=== PATIENT | male | born 1970 | race Caucasian/White ===

== ENCOUNTER 2016-12-30 13:59 | Emergency (ER) | payer BC ==
[2016-12-30] MEDS ORDERED: LORAZEPAM 1 MG TABLET PO ONE (14:41)
--- NOTE | 2016-12-30 14:45 | ER Document Report ---
ED Medical Screen (RME) - General Chief Complaint: Probable Seizure Stated Complaint: POSSIBLE SEIZURE Mode of Arrival: Medic Information source: Patient Notes: 46 y/o M presents to ED via ems for seizure activity. Denies hx of seizures. Admits to heavy etoh use. States usually drinks 8 mixed drinks/day. Had one this morning. Reports associated headache. I have greeted and performed a rapid initial assessment of this patient. A comprehensive ED assessment and evaluation of the patient, analysis of test results and completion of the medical decision making process will be conducted by additional ED providers. TRAVEL OUTSIDE OF THE [place] IN LAST 30 DAYS: No COUNTRY TRAVELED TO/FROM: [facility] - Related Data Allergies/Adverse Reactions: sulfamethoxazole [From Bactrim] Allergy (Verified 12/30/16 14:32) trimethoprim [From Bactrim] Allergy (Verified 12/30/16 14:32) Past Medical History - Social History Chew tobacco use (# tins/day): No Frequency of alcohol use: daily Drug Abuse: None Renal/ Medical History: Denies: Hx Peritoneal Dialysis Physical Exam - Vital signs Vitals: Temp Pulse Resp BP Pulse Ox 98.5 F 98 20 149/96 H 97 12/30/16 14:28 12/30/16 14:28 12/30/16 14:28 12/30/16 14:28 12/30/16 14:28 - General General appearance: Alert In distress: None - Neurological Neuro grossly intact: Yes Cognition: Normal Orientation: AAOx4 [place] Coma Scale Eye Opening: Spontaneous [place] Coma Scale Verbal: Oriented [place] Coma Scale Motor: Obeys Commands [place] Coma Scale Total: 15 Speech: Normal Motor strength normal: LUE, RUE, LLE, RLE - Psychological Associated symptoms: Anxious Course - Vital Signs Vital signs: Temp Pulse Resp BP Pulse Ox 98.5 F 98 20 149/96 H 97 12/30/16 14:28 12/30/16 14:28 12/30/16 14:28 12/30/16 14:28 12/30/16 14:28
[2016-12-30 15:07] LABS: ABSOLUTE BASOPHILS # (AUTO) 0.1 10^3/uL (0.0-0.2); ABSOLUTE LYMPHOCYTES (AUTO) 0.7 10^3/uL (0.5-4.7); ABSOLUTE MONOCYTES (AUTO) 0.7 10^3/uL (0.1-1.4); ABSOLUTE NEUT (AUTO) 3.7 10^3/uL (1.7-8.2); BASOPHILS % (AUTO) 2.5 % (0-2); EOSINOPHILS % (AUTO) 0.1 % (0-6); HEMATOCRIT 40.9 % (37.9-51.0); HEMOGLOBIN 14.1 g/dL (13.5-17.0); HGB HCT DIFFERENCE 1.4; LYMPHOCYTES % (AUTO) 13.6 % (13-45); MEAN CORPUSCULAR HEMOGLOBIN 35.4 pg (27.0-33.4); MEAN CORPUSCULAR HGB CONC 34.5 g/dL (32.0-36.0); MEAN CORPUSCULAR VOLUME 103 fl (80-97); MONOCYTES % (AUTO) 13.7 % (3-13); RED BLOOD COUNT 3.98 10^6/uL (4.35-5.55); RED CELL DISTRIBUTION WIDTH 14.7 % (11.5-14.0); SEGMENTED NEUTROPHILS % (AUTO) 70.1 % (42-78); WHITE BLOOD COUNT 5.3 10^3/uL (4.0-10.5)
[2016-12-30 15:21] LABS: ALANINE AMINOTRANSFERASE 95 U/L (21-72); ALBUMIN 4.8 g/dL (3.5-5.0); ALKALINE PHOSPHATASE 111 U/L (38-126); ANION GAP 10 (5-19); ASPARTATE AMINO TRANSFERASE 169 U/L (17-59); BILIRUBIN,TOTAL 1.2 mg/dL (0.2-1.3); BLOOD UREA NITROGEN 10 mg/dL (7-20); CALCIUM 9.8 mg/dL (8.4-10.2); CARBON DIOXIDE 27 mmol/L (22-30); CHLORIDE 102 mmol/L (98-107); CREATININE RESULT 0.86 mg/dL (0.52-1.25); GLUCOSE 118 mg/dL (75-110); MAGNESIUM 1.6 mg/dL (1.6-2.3); POTASSIUM 4.5 mmol/L (3.6-5.0); SODIUM 138.7 mmol/L (137-145); TOTAL PROTEIN 7.5 g/dL (6.3-8.2)
[2016-12-30 15:22] LABS: ALCOHOL < 10 mg/dL (NONE DETECTED)
[2016-12-30 16:25] LABS: APPEARANCE,URINE CLEAR; BILIRUBIN,URINE NEGATIVE (NEGATIVE); GLUCOSE, URINE NEGATIVE (NEGATIVE); KETONES,URINE 80 mg/dL (NEGATIVE); LEUKOCYTE ESTERASE,URINE NEGATIVE (NEGATIVE); NITRITE,URINE NEGATIVE (NEGATIVE); PROTEIN,URINE 100 mg/dL (NEGATIVE); URINE SPECIFIC GRAVITY 1.024
--- NOTE | 2016-12-30 16:37 | EKG REPORT ---
SEVERITY:- ABNORMAL ECG - SINUS RHYTHM LOW VOLTAGE IN FRONTAL LEADS NONSPECIFIC T ABNORMALITIES, INFERIOR LEADS : Confirmed by: Mariia Singletary MD 30-Dec-2016 16:35:30
[2016-12-30 16:40] LABS: URINE BARBITURATES SCREEN NEGATIVE; URINE METHADONE SCREEN NEGATIVE; URINE OPIATES LOW NEGATIVE; URINE PHENCYCLIDINE SCREEN NEGATIVE
[2016-12-30] MEDS ORDERED: FOLIC ACID INJ 5 MG/1 ML 10 ML VIAL IV PRN (17:01)
[2016-12-30] MEDS ORDERED: LORAZEPAM INJ 2 MG/1 ML VIAL IV ONE ×2 (17:01→18:41)
[2016-12-30] MEDS ORDERED: THIAMINE HCL 100 MG in NORMAL SALINE 50 ML IV ONE (17:01)
[2016-12-30 17:29] LABS: MAGNESIUM 1.6 mg/dL (1.6-2.3)
[2016-12-30] MEDS: NORMAL SALINE 1000 ML 1,000 ML IV PRN ×2 (18:16→18:28)
[2016-12-30] MEDS ORDERED: THIAMINE HCL 100 MG, FOLIC ACID 1 MG in NORMAL SALINE 50 ML IV ONE (18:30)
--- NOTE | 2016-12-30 19:54 | ER Document Report ---
ED General - General Chief Complaint: Probable Seizure Stated Complaint: POSSIBLE SEIZURE Time seen by provider: 17:00 Mode of Arrival: Medic Information source: Patient, Relative Notes: This is a 46-year-old man who is brought in by EMS after a generalized witnessed seizure at home in the setting of stopping alcohol intake. The patient does have a history of alcohol abuse. He states he took half a drink this morning (he was can stop). Later in the day, his friend noticed that he had a generalized tonic-clonic seizure. The patient is followed by Dr. Guaman and has a history of hypertension, depression and anxiety. His medicines are metoprolol, Prozac and Xanax. Patient states he did not take any Xanax today. TRAVEL OUTSIDE OF THE [place] IN LAST 30 DAYS: No COUNTRY TRAVELED TO/FROM: [facility] Onset: Just prior to arrival Onset/Duration: Sudden Quality of pain: No pain Severity: None Pain Level: Denies Associated symptoms: denies: Chills, Fever, Shortness of breath Exacerbated by: Denies Relieved by: Denies Similar symptoms previously: No Recently seen / treated by doctor: No - Related Data Allergies/Adverse Reactions: sulfamethoxazole [From Bactrim] Allergy (Verified 12/30/16 14:32) trimethoprim [From Bactrim] Allergy (Verified 12/30/16 14:32) Past Medical History - General Information source: Patient - Social History Smoking Status: Current Every Day Smoker Cigarette use (# per day): Yes - 1 pack per day Chew tobacco use (# tins/day): No Smoking Education Provided: No Frequency of alcohol use: Heavy Drug Abuse: None Lives with: Family Family History: Reviewed & Not Pertinent Patient has suicidal ideation: No Patient has homicidal ideation: No - Past Medical History Cardiac Medical History: Reports: Hx Hypertension Renal/ Medical History: Denies: Hx Peritoneal Dialysis Psychiatric Medical History: Reports: Hx Depression Review of Systems - Review of Systems Constitutional: denies: Chills, Fever EENT: No symptoms reported Cardiovascular: No symptoms reported Respiratory: No symptoms reported Gastrointestinal: No symptoms reported Genitourinary: No symptoms reported Male Genitourinary: No symptoms reported Musculoskeletal: No symptoms reported Skin: No symptoms reported Hematologic/Lymphatic: No symptoms reported Neurological/Psychological: See HPI Physical Exam - Vital signs Vitals: Temp Pulse Resp BP Pulse Ox 98.5 F 98 20 149/96 H 97 12/30/16 14:28 12/30/16 14:28 12/30/16 14:28 12/30/16 14:28 12/30/16 14:28 Notes: Physical exam: GENERAL: 46-year-old man, alert and oriented 3, appears tremulous HEAD: Atraumatic, normocephalic. EYES: Pupils equal round and reactive to light, extraocular movements intact, sclera anicteric, conjunctiva are normal. ENT: TMs normal, nares patent, oropharynx clear without exudates. Moist mucous membranes. NECK: Normal range of motion, supple without lymphadenopathy or JVD. LUNGS: Breath sounds clear to auscultation bilaterally and equal. No wheezes rales or rhonchi. HEART: Regular rate and rhythm without murmurs, rubs or gallops. ABDOMEN: Soft, normoactive bowel sounds. No tenderness to palpation. No guarding, no rebound. No masses appreciated. EXTREMITIES: Normal range of motion, no pitting or edema. No clubbing or cyanosis. NEUROLOGICAL: Cranial nerves II through XII grossly intact. Motor 5 over 5, sensory grossly intact, moving all extremities, he does appear tremulous. PSYCH: Normal mood, normal affect. SKIN: Warm, Dry, normal turgor, no rashes or lesions noted. Course - Re-evaluation Re-evalutation: 12/30/16 19:49 Patient was observed several hours in the ER. He was treated with IV Ativan, IV folic acid and IV thiamine. I discussed the case with Dr. Guaman in the emergency room who had seen him in the ER. The plan will be for follow-up as an outpatient, home with by mouth Ativan of encourage patient to go to [facility] Dr. Guaman would like to see him in the beginning of next week. - Vital Signs Vital signs: Temp Pulse Resp BP Pulse Ox 98.3 F 88 18 130/81 H 97 12/30/16 20:25 12/30/16 20:25 12/30/16 20:25 12/30/16 20:25 12/30/16 20:25 - Laboratory Result Diagrams: 12/30/16 14:45 12/30/16 14:45 Laboratory results interpreted by me: 12/30/16 12/30/16 12/30/16 14:45 14:45 14:45 RBC 3.98 L MCV 103 H MCH 35.4 H RDW 14.7 H Plt Count 126 L Monocytes % 13.7 H Basophils % 2.5 H Glucose 118 H AST 169 H ALT 95 H Creatine Kinase 177 H Urine Protein Urine Ketones Urine Urobilinogen 12/30/16 16:04 RBC MCV MCH RDW Plt Count Monocytes % Basophils % Glucose AST ALT Creatine Kinase Urine Protein 100 H Urine Ketones 80 H Urine Urobilinogen 4.0 H - Diagnostic Test Radiology reviewed: Image reviewed, Reports reviewed - CT of the head shows no acute bleed or stroke. Chest x-ray shows no infiltrates. - EKG Interpretation by Me Rate: Normal Rhythm: NSR - EKG shows normal sinus rhythm with a ventricular rate of 93, no acute ST-T wave changes Discharge - Discharge Clinical Impression: alcohol withdrawal seizure Condition: Stable Disposition: HOME, SELF-CARE Additional Instructions: Recommendations: Take the Ativan 3 times daily to avoid SEIZURES. I would like you to follow-up with [facility] which is right on the hospital premises ( [address]): Call them for detox. The number is Dr. Guaman would also like to see Tuesday or Tuesday: Call the clinic to be seen on Tuesday, tell the switchboard receptionist that Dr. Guaman had seen you in the emergency room night. Return to the emergency room for any further seizures or worsening problems. Prescriptions: Folic Acid 1 mg PO DAILY #30 tablet Lorazepam [Ativan 1 mg Tablet] 1 tab PO TID #30 tablet Thiamine HCl [Thiamine 100 mg Tablet] 100 mg PO DAILY #30 tablet Referrals: ANSELMO GUAMAN MD [Primary Care Provider] - 01/03/17
[2016-12-30 20:34] VITALS: BP 130/81
== END 2016-12-30 20:27 | disposition home or self-care (01) ==
LOC: ER 13:59
DX: F10.239 Alcohol dependence with withdrawal, unspecified (principal); R56.9 Unspecified convulsions; F17.210 Nicotine dependence, cigarettes, uncomplicated; I10 Essential (primary) hypertension
CPT/HCPCS: 93005; 96376; 99285; 96361; 96375; 96365; 36415; 80307 ×2; 82550; 83735; 85025; 80053; 81001; 71010; 70450; 93010; J3490; J2060; J3411; J7030

== ENCOUNTER 2017-05-03 00:01 | Inpatient (IN) | payer SELFPAY ==
[2017-05-03] MEDS ORDERED: DIAZEPAM INJ 10 MG/2 ML DISP.SYRIN ONE ×2 (01:41→05:50)
[2017-05-03] MEDS ORDERED: LORAZEPAM INJ 2 MG/1 ML VIAL ONE ×2 (01:48→05:56)
[2017-05-03] MEDS ORDERED: LORAZEPAM INJ 2 MG/1 ML VIAL IV ONE ×2 (01:51→06:02)
[2017-05-03] MEDS ORDERED: DIAZEPAM INJ 10 MG/2 ML DISP.SYRIN IV ONE ×2 (01:51→04:25)
[2017-05-03] MEDS ORDERED: THIAMINE HCL 100 MG in NORMAL SALINE 50 ML IV ONE (01:52)
[2017-05-03] MEDS ORDERED: THIAMINE HCL INJ 200 MG/2 ML VIAL ONE (02:19)
[2017-05-03 03:06] LABS: ALANINE AMINOTRANSFERASE 90 U/L (21-72); ALBUMIN 4.4 g/dL (3.5-5.0); ALKALINE PHOSPHATASE 101 U/L (38-126); ANION GAP 15 (5-19); ASPARTATE AMINO TRANSFERASE 121 U/L (17-59); BILIRUBIN,DIRECT 0.4 mg/dL (0.0-0.4); BILIRUBIN,TOTAL 0.9 mg/dL (0.2-1.3); BLOOD UREA NITROGEN 7 mg/dL (7-20); CALCIUM 9.7 mg/dL (8.4-10.2); CARBON DIOXIDE 23 mmol/L (22-30); CHLORIDE 101 mmol/L (98-107); CREATININE RESULT 0.83 mg/dL (0.52-1.25); GLUCOSE 111 mg/dL (75-110); MAGNESIUM 1.7 mg/dL (1.6-2.3); POTASSIUM 3.9 mmol/L (3.6-5.0); SODIUM 138.5 mmol/L (137-145); TOTAL PROTEIN 7.6 g/dL (6.3-8.2)
[2017-05-03 03:08] LABS: ALCOHOL < 10 mg/dL (NONE DETECTED)
[2017-05-03 03:11] LABS: ABSOLUTE BASOPHILS # (AUTO) 0.1 10^3/uL (0.0-0.2); ABSOLUTE LYMPHOCYTES (AUTO) 0.6 10^3/uL (0.5-4.7); ABSOLUTE MONOCYTES (AUTO) 0.7 10^3/uL (0.1-1.4); ABSOLUTE NEUT (AUTO) 5.1 10^3/uL (1.7-8.2); BASOPHILS % (AUTO) 1.1 % (0-2); EOSINOPHILS % (AUTO) 0.1 % (0-6); HEMATOCRIT 43.1 % (37.9-51.0); HEMOGLOBIN 14.3 g/dL (13.5-17.0); HGB HCT DIFFERENCE -0.2; MEAN CORPUSCULAR HEMOGLOBIN 34.5 pg (27.0-33.4); MEAN CORPUSCULAR HGB CONC 33.3 g/dL (32.0-36.0); MEAN CORPUSCULAR VOLUME 104 fl (80-97); MONOCYTES % (AUTO) 11.6 % (3-13); RED BLOOD COUNT 4.16 10^6/uL (4.35-5.55); RED CELL DISTRIBUTION WIDTH 13.6 % (11.5-14.0); SEGMENTED NEUTROPHILS % (AUTO) 78.2 % (42-78); WHITE BLOOD COUNT 6.5 10^3/uL (4.0-10.5)
--- NOTE | 2017-05-03 03:16 | RADIOLOGY REPORT (SQ) ---
EXAM DESCRIPTION: CT HEAD WITHOUT COMPLETED DATE/TIME: 05/03/2017 3:05 am REASON FOR STUDY: fall COMPARISON: 12.30.16 TECHNIQUE: Axial images acquired through the brain without intravenous contrast. Images reviewed wi th bone, brain and subdural windows. Images stored on PACS. All CT scanners at this facility use dose modulation, iterative reconstruction, and/or weight based d osing when appropriate to reduce radiation dose to as low as reasonably achievable (ALARA). [facility]: Dose Right [facility]: CareDose [facility]: Dose Right [facility]: Teradose 4D [facility]: Smart Zazoom RADIATION DOSE: Up-to-date CT equipment and radiation dose reduction techniques were employed. CTDIv ol: 64.6 mGy. DLP: 1138 mGy-cm. mGy. LIMITATIONS: None. FINDINGS: VENTRICLES: Normal size and contour. CEREBRUM: No masses. No hemorrhage. No midline shift. Normal castaneda/white matter differentiation. N o evidence for acute infarction. Mild cerebral volume loss. CEREBELLUM: No masses. No hemorrhage. No alteration of density. No evidence for acute infarction. EXTRAAXIAL SPACES: No fluid collections. No masses. ORBITS AND GLOBE: No intra- or extraconal masses. Normal contour of globe without masses. CALVARIUM: No fracture. PARANASAL SINUSES: No fluid or mucosal thickening. SOFT TISSUES: No mass or hematoma. OTHER: No other significant finding. IMPRESSION: NORMAL BRAIN CT WITHOUT CONTRAST. TECHNICAL DOCUMENTATION: JOB ID: [id number] Quality ID # [id number]: Final reports with documentation of one or more dose reduction techniques (e.g., Au tomated exposure control, adjustment of the mA and/or kV according to patient size, use of iterative reconstruction technique) 2010 [employer]- All Rights Reserved
--- NOTE | 2017-05-03 04:30 | ER Document Report ---
ED General - General Chief Complaint: Alcohol Withdrawl Stated Complaint: POSSIBLE ETOH Time Seen by Provider: 05/03/17 01:51 Notes: Patient presents to the ER having seizures. He has a history of alcohol withdrawal causing seizures in the past. He is on no medications. He does not have a doctor at this time. He does not have insurance and therefore no longer sees a doctor according to family. He was trying to cut back on alcohol today. He typically drinks half a gallon of vodka a day. Today he had about 2 beers trying to cut back. Tonight he started having a seizure. Upon arrival to the ER he is having a seizure. When I enter the room he just finished having a seizure and did bite his tongue. He is somewhat combative and confused. TRAVEL OUTSIDE OF THE [place] IN LAST 30 DAYS: No COUNTRY TRAVELED TO/FROM: [facility] - Related Data Allergies/Adverse Reactions: sulfamethoxazole [From Bactrim] Allergy (Verified 05/03/17 00:11) trimethoprim [From Bactrim] Allergy (Verified 05/03/17 00:11) codeine Adverse Reaction (Verified 05/03/17 00:11) VOMITING, welts Past Medical History - Social History Smoking Status: Unknown if Ever Smoked Frequency of alcohol use: Heavy Drug Abuse: None Family History: Reviewed & Not Pertinent - Past Medical History Cardiac Medical History: Reports: Hx Hypertension Renal/ Medical History: Denies: Hx Peritoneal Dialysis Psychiatric Medical History: Reports: Hx Depression Review of Systems - Review of Systems Notes: My Normal Review Basic REVIEW OF SYSTEMS: CONSTITUTIONAL : Denies fever, chills, or sweats. Denies recent illness. EENT: Denies eye, ear, throat, or mouth pain or symptoms. Denies nasal or sinus congestion. RESPIRATORY: Denies cough, cold, or chest congestion. Denies shortness of breath, difficulty breathing, or wheezing. GASTROINTESTINAL: Denies abdominal pain. Denies nausea, vomiting, or diarrhea. Denies constipation. Last BM: MUSCULOSKELETAL: Denies neck or back pain or joint pain or swelling. SKIN: Denies rash or skin lesions. NEUROLOGICAL: Alcohol withdrawal with seizure. ALL OTHER SYSTEMS REVIEWED AND NEGATIVE. Physical Exam - Vital signs Vitals: Temp Pulse Resp BP Pulse Ox 98.5 F 95 19 125/100 H 97 05/03/17 00:13 05/03/17 00:13 05/03/17 00:13 05/03/17 00:13 05/03/17 00:13 - Notes Notes: General Appearance: Patient is postictal and easily agitated and somewhat combative. Vitals: reviewed, See vital signs table. Head: no swelling or tenderness to the head Eyes: PERRL, EOMI, Conjuctiva clear Mouth: Abrasion to the right lateral aspect of the tongue from where he bit his tongue. Throat: No tonsillar inflammation, No airway obstruction, No lymphadenopathy Lungs: No wheezing, No rales, No rhonci, No accessory muscle use, good air exchange bilaterally. Heart: Normal rate, Regular rythm, No murmur, no rub Abdomen: Normal BS, soft, No rigidity, No abdominal tenderness, No guarding, no rebound, no abdominal masses, no organomegaly Extremities: strength 5/5 in all extremities, good pulses in all extremities, no swelling or tenderness in the extremities, no edema. Skin: warm, dry, appropriate color, no rash Neuro: speech clear, oriented x 3, normal affect, responds appropriately to questions. Course - Vital Signs Vital signs: Temp Pulse Resp BP Pulse Ox 98.5 F 95 28 H 125/100 H 88 L 05/03/17 00:13 05/03/17 00:13 05/03/17 06:00 05/03/17 00:13 05/03/17 06:00 - Laboratory Result Diagrams: 05/03/17 02:35 05/03/17 02:35 Laboratory results interpreted by me: 05/03/17 05/03/17 02:35 02:35 RBC 4.16 L MCV 104 H MCH 34.5 H Plt Count 101 L Seg Neutrophils % 78.2 H Lymphocytes % 9.0 L Glucose 111 H AST 121 H ALT 90 H - Transfer of Care Notes: 05/03/17 06:43 Arrived in the room patient was obviously confused. He then became combative and was trying to push us off. Would not allow us to give him medications try to help prevent further seizures. We did have to hold him down place an IV. He was given 5 of Valium. He continued to have tremor and therefore gave him 4 of Ativan. This did help sedate him and he was doing much better. Patient later awoke and was awake and alert and more appropriate. He started to have a tremor grandmother for ordered 5 mg of Valium IV. Patient laboratory evaluation is unremarkable. I did speak with the hospitalist who agrees to admit the patient. Patient did have a CT scan of his head because the family member so that he has been falling a lot frequently due to his alcohol abuse. CT scan was negative. Patient will be admitted for further treatment of his alcohol withdrawal and seizures. Dictation of this chart was performed using voice recognition software; therefore, there may be some unintended grammatical errors. Discharge - Discharge Clinical Impression: Seizure Alcohol dependence with withdrawal Qualifiers: Complication of substance-induced condition: with delirium Qualified Code(s): F10.231 - Alcohol dependence with withdrawal delirium Disposition: ADMITTED INPATIENT Admitting Provider: Hospitalist Unit Admitted: Telemetry
[2017-05-03] MEDS ORDERED: ACETAMINOPHEN 325 MG TABLET PO PRN (04:31)
[2017-05-03] MEDS ORDERED: LORAZEPAM INJ 2 MG/1 ML VIAL IV PRN (04:31)
[2017-05-03] MEDS ORDERED: FOLIC ACID INJ 5 MG/1 ML 10 ML VIAL IV PRN (05:30)
[2017-05-03] MEDS ORDERED: THIAMINE HCL 100 MG, FOLIC ACID 1 MG in NORMAL SALINE 50 ML IV ONE (05:30)
[2017-05-03] MEDS ORDERED: THIAMINE HCL INJ 200 MG/2 ML VIAL IV PRN (05:30)
[2017-05-03] MEDS: NORMAL SALINE 1000 ML 1,000 ML IV SCH ×2 (06:19→10:46)
[2017-05-03] MEDS: LORAZEPAM INJ 2 MG/1 ML VIAL IV SCH ×3 (06:20→18:05)
--- NOTE | 2017-05-03 06:31 | PDOC H&P ---
History of Present Illness Admission Date/PCP: 05/03/17 04:31 Patient complains of: Seizure History of Present Illness: LUPE JACKSON is a 46 year old male with a past history of tobacco and alcohol dependence who has been in his usual state of health until approximately 6 hours prior to presentation having a witnessed seizure, he was helped to the ground placed in the recumbent position but sustained laceration to the tongue. He had a brief postictal state but returned to baseline he was brought to the emergency room for evaluation and had another 2 episodes followed by severe agitation. He is accompanied by his who can only provide limited additional history verifying problem drinking and previous seizure. Over the past 6 hours she is required 20 mg of Valium and 12 mg of Ativan IV but remains awake and alert. Past Medical History Cardiac Medical History: Reports: Hypertension Psychiatric Medical History: Reports: Alcohol Dependency, Depression, Tobacco Dependency Social History Information Source: Relative, [facility] Lives with: Spouse/Significant other Smoking Status: Current Every Day Smoker - Advance Directive Resuscitation Status: Full Code Family History Family History: Reviewed & Not Pertinent, Arthritis, CAD, COPD, Other - Alcoholism Parental Family History Reviewed: Yes Children Family History Reviewed: Yes Sibling(s) Family History Reviewed.: Yes Medication/Allergy Home Medications: Folic Acid 1 mg PO DAILY #30 tablet 12/30/16 Lorazepam [Ativan 1 mg Tablet] 1 tab PO TID #30 tablet 12/30/16 Thiamine HCl [Thiamine 100 mg Tablet] 100 mg PO DAILY #30 tablet 12/30/16 Allergies/Adverse Reactions: sulfamethoxazole [From Bactrim] Allergy (Verified 05/03/17 00:11) trimethoprim [From Bactrim] Allergy (Verified 05/03/17 00:11) codeine Adverse Reaction (Verified 05/03/17 00:11) VOMITING, welts Review of Systems ROS unobtainable: Due to mental status - Postictal Physical Exam Vital Signs: Temp Pulse Resp BP Pulse Ox 98.5 F 95 18 125/100 H 96 05/03/17 00:13 05/03/17 00:13 05/03/17 02:00 05/03/17 00:13 05/03/17 02:00 General appearance: PRESENT: disheveled, mild distress, thin Head exam: PRESENT: atraumatic, normocephalic Eye exam: PRESENT: nystagmus - Bilateral lateral nystagmus Ear exam: PRESENT: normal external ear exam Mouth exam: PRESENT: moist, tongue midline, other - Tongue laceration Teeth exam: PRESENT: poor dentation Neck exam: ABSENT: carotid bruit, JVD, lymphadenopathy, thyromegaly Respiratory exam: PRESENT: clear to auscultation kraig, prolonged expiratory phas. ABSENT: rales, rhonchi, wheezes Cardiovascular exam: PRESENT: RRR. ABSENT: diastolic murmur, rubs, systolic murmur Pulses: PRESENT: normal dorsalis pedis pul Vascular exam: PRESENT: normal capillary refill GI/Abdominal exam: PRESENT: normal bowel sounds, soft. ABSENT: distended, guarding, mass, organolmegaly, rebound, tenderness Rectal exam: PRESENT: deferred Extremities exam: PRESENT: full ROM. ABSENT: calf tenderness, clubbing, pedal edema Neurological exam: PRESENT: alert, awake, oriented to person, oriented to place , oriented to time, oriented to situation, CN II-XII grossly intact. ABSENT: motor sensory deficit Psychiatric exam: PRESENT: anxious, unusual affect Focused psych exam: PRESENT: internal stimuli, psychomotor agitation, restlessness Skin exam: PRESENT: dry, intact, warm. ABSENT: cyanosis, rash Results Impressions: Head CT 05/03/17 01:53 IMPRESSION: NORMAL BRAIN CT WITHOUT CONTRAST. Assessment & Plan - Diagnosis (1) DTs (delirium tremens) Is this a current diagnosis for this admission?: YesPlan: Supportive care ICU admission IV Ativan, thiamine and folate (2) Alcohol dependence with withdrawal Qualifiers: Complication of substance-induced condition: with delirium Qualified Code(s): F10.231 - Alcohol dependence with withdrawal delirium Is this a current diagnosis for this admission?: YesPlan: Patient does not convey an intent to discontinue alcohol, continue supportive care with seizure precautions (3) Tobacco abuse Is this a current diagnosis for this admission?: YesPlan: Tobacco Dependence patient received tobacco cessation counseling and offered nicotine replacement options (4) Seizure Is this a current diagnosis for this admission?: YesPlan: Valium and Ativan as needed - Time Time Spent: 50 to 70 Minutes - Inpatient Certification Medical Necessity: Need Close Monitoring Due to Risk of Patient Decompensation
[2017-05-03] MEDS: HEPARIN SOD (PORCINE) 5,000 UNIT/ML 1 ML SYRINGE SUBCUT SCH ×2 (06:35→15:11)
[2017-05-03] MEDS ORDERED: NORMAL SALINE 1000 ML 1,000 ML IV PRN (07:27)
[2017-05-03] MEDS ORDERED: ALPRAZOLAM 0.5 MG TABLET PO PRN (07:28)
[2017-05-03] MEDS ORDERED: LIDOCAINE 2% URO-JET 5 ML KIT MM ONE ×2 (09:11→10:00)
[2017-05-03] MEDS ORDERED: MAGNESIUM SULFATE/D5W 100 ML IV SCH (09:15)
[2017-05-03] MEDS ORDERED: PHARMACY COMMUNICATION ORDER MC NR (09:15)
[2017-05-03] MEDS: IPRATROPIUM/ALBUTEROL 0.5-2.5 MG/3 ML AMPUL NEB SCH ×2 (09:25→16:20)
[2017-05-03] MEDS ORDERED: METOPROLOL TARTRATE 25 MG TABLET PO SCH (10:00)
[2017-05-03] MEDS: DOCUSATE SODIUM 100 MG CAPSULE PO SCH ×2 (10:43→18:05)
[2017-05-03] MEDS: METOPROLOL TARTRATE 25 MG TABLET PO SCH ×2 (10:43→23:15)
[2017-05-03] MEDS: NICOTINE 21 MG/24 HR PATCH.TD24 TD SCH (10:43)
[2017-05-03] MEDS: FLUOXETINE HCL 20 MG CAPSULE PO SCH (10:45)
[2017-05-03] MEDS: NORMAL SALINE 1000 ML 1,000 ML IV PRN (10:59)
[2017-05-03] MEDS ORDERED: THIAMINE HCL 500 MG in NORMAL SALINE 50 ML IV SCH (11:00)
[2017-05-03] MEDS ORDERED: MAGNESIUM SULFATE/D5W 1 GM/100 ML RTUPB IV ONE ×2 (13:00→23:36)
[2017-05-03 13:55] LABS: URINE BARBITURATES SCREEN NEGATIVE; URINE METHADONE SCREEN NEGATIVE; URINE OPIATES LOW NEGATIVE; URINE PHENCYCLIDINE SCREEN NEGATIVE
[2017-05-03] MEDS ORDERED: ALPRAZOLAM 0.5 MG TABLET PO SCH (14:00)
--- NOTE | 2017-05-03 16:06 | PDOC PROGRESS REPORT ---
Subjective Progress Note for:: 05/03/17 Subjective:: Unable to obtain review of systems from patient secondary to sedated status. and nurse are present at bedside for examination. reports the patient drinks 1/2 gallon or more per day. And due to financial considerations has been cutting down. Physical Exam Vital Signs: Temp Pulse Resp BP Pulse Ox 98.5 F 95 18 125/100 H 96 05/03/17 00:13 05/03/17 00:13 05/03/17 07:00 05/03/17 00:13 05/03/17 07:00 Exam: General: Sedated but arouses to stimuli, no acute respiratory distress HEENT: AT/NC, PERRL(mydriasis), EOMI, oropharynx is dry, pink, no scleral icterus, no conjunctival injection Neck: No JVD, trachea midline Chest: Clear to auscultation bilaterally, no wheezes rhonchi or rales CV: Regular rate and rhythm, normal S1 and S2, no murmur, rub, or gallop Abdomen: Soft, nontender to palpation, active bowel sounds; no rebound, rigidity , or guarding; palpable distended urinary bladder Extremities: No cyanosis, clubbing or edema Results Impressions: Head CT 05/03/17 01:53 IMPRESSION: NORMAL BRAIN CT WITHOUT CONTRAST. Assessment & Plan - Diagnosis (1) Alcohol withdrawal seizure Qualifiers: Complication of substance-induced condition: with delirium Qualified Code(s): F10.231 - Alcohol dependence with withdrawal delirium Is this a current diagnosis for this admission?: YesPlan: Patient is currently with scheduled benzodiazepines for this. There are as needed benzodiazepines if needed. Place on seizure precautions. (2) DTs (delirium tremens) Is this a current diagnosis for this admission?: YesPlan: Currently on scheduled Ativan and as needed Ativan. Will place patient on thiamine, folic acid, and multivitamin. Continue to monitor patient for arrhythmia. Continue to monitor potassium and magnesium. Patient's describes symptoms of peripheral neuropathy and a wide-based gait with significant ataxia and will place patient on high-dose IV thiamine with concern for Wernicke's. (3) Tobacco abuse Is this a current diagnosis for this admission?: YesPlan: nicotine Patch - Time Time Spent with patient: 25-34 minutes Critical Time spent with patient: 25-34 minutes Medications reviewed and adjusted accordingly: Yes
[2017-05-03] MEDS ORDERED: NORMAL SALINE 1000 ML 1,000 ML with POTASSIUM CHLORIDE 20 MEQ, MAGNESIUM SULFATE 8 MEQ,... IV SCH ×5 (18:00)
[2017-05-03] MEDS: LORAZEPAM 24 MG/ D5W 240 ML IV PRN (20:23)
[2017-05-03] MEDS ORDERED: MORPHINE SULFATE 10 MG/ML INJ IV ONE ×2 (22:27→23:45)
[2017-05-03] MEDS ORDERED: OLANZAPINE INJ/PF 10 MG SDV IM ONE (22:27)
[2017-05-03] MEDS ORDERED: MORPHINE SULFATE 10 MG/ML INJ ONE ×2 (22:50→23:23)
[2017-05-03 22:51] LABS: ABSOLUTE BASOPHILS # (AUTO) 0.1 10^3/uL (0.0-0.2); ABSOLUTE LYMPHOCYTES (AUTO) 1.5 10^3/uL (0.5-4.7); ABSOLUTE MONOCYTES (AUTO) 0.9 10^3/uL (0.1-1.4); ABSOLUTE NEUT (AUTO) 4.3 10^3/uL (1.7-8.2); EOSINOPHILS % (AUTO) 0.3 % (0-6); HEMATOCRIT 39.7 % (37.9-51.0); HEMOGLOBIN 13.4 g/dL (13.5-17.0); HGB HCT DIFFERENCE 0.5; LYMPHOCYTES % (AUTO) 22.6 % (13-45); MEAN CORPUSCULAR HEMOGLOBIN 34.8 pg (27.0-33.4); MEAN CORPUSCULAR HGB CONC 33.6 g/dL (32.0-36.0); MEAN CORPUSCULAR VOLUME 103 fl (80-97); MONOCYTES % (AUTO) 12.8 % (3-13); RED BLOOD COUNT 3.84 10^6/uL (4.35-5.55); RED CELL DISTRIBUTION WIDTH 13.5 % (11.5-14.0); SEGMENTED NEUTROPHILS % (AUTO) 63.3 % (42-78); WHITE BLOOD COUNT 6.8 10^3/uL (4.0-10.5)
[2017-05-03 23:01] LABS: ALANINE AMINOTRANSFERASE 76 U/L (21-72); ALBUMIN 3.8 g/dL (3.5-5.0); ALKALINE PHOSPHATASE 81 U/L (38-126); ANION GAP 9 (5-19); ASPARTATE AMINO TRANSFERASE 78 U/L (17-59); BILIRUBIN,DIRECT 0.2 mg/dL (0.0-0.4); BILIRUBIN,TOTAL 1.1 mg/dL (0.2-1.3); BLOOD UREA NITROGEN 6 mg/dL (7-20); CALCIUM 8.7 mg/dL (8.4-10.2); CARBON DIOXIDE 23 mmol/L (22-30); CHLORIDE 103 mmol/L (98-107); CREATINE KINASE 469 U/L (55-170); CREATININE RESULT 0.77 mg/dL (0.52-1.25); GLUCOSE 88 mg/dL (75-110); POTASSIUM 3.5 mmol/L (3.6-5.0); SODIUM 135.2 mmol/L (137-145); TOTAL PROTEIN 6.6 g/dL (6.3-8.2)
[2017-05-03 23:13] LABS: CREATINE KINASE MB 2.32 ng/mL (<4.55)
[2017-05-03 23:15] LABS: TROPONIN I 0.041 ng/mL
[2017-05-03] MEDS ORDERED: POTASSI CL 20 MEQ/50 ML RIDER 20 MEQ/50 ML RTUPB IV ONE ×2 (23:36→23:45)
--- NOTE | 2017-05-03 23:45 | EKG REPORT ---
SEVERITY:- ABNORMAL ECG - SINUS RHYTHM LOW VOLTAGE IN FRONTAL LEADS PROLONGED QT INTERVAL : Confirmed by: Mayi Sosa 03-May-2017 23:44:45
[2017-05-04] MEDS: IPRATROPIUM/ALBUTEROL 0.5-2.5 MG/3 ML AMPUL NEB SCH ×4 (00:08→23:30)
[2017-05-04] MEDS: MAGNESIUM SULFATE/D5W 1 GM/100 ML RTUPB IV SCH ×2 (00:09→00:49)
[2017-05-04] MEDS: HEPARIN SOD (PORCINE) 5,000 UNIT/ML 1 ML SYRINGE SUBCUT SCH ×4 (00:12→21:17)
[2017-05-04 01:55] LABS: ARTERIAL BLOOD BASE EXCESS -2.3 mmol/L; ARTERIAL BLOOD O2 SATURATION 93.7 % (94-98)
[2017-05-04] MEDS: NORMAL SALINE 1000 ML 1,000 ML IV PRN ×3 (03:01→16:22)
[2017-05-04] MEDS: LORAZEPAM 24 MG/ D5W 240 ML IV PRN ×4 (05:33→21:17)
[2017-05-04 07:03] LABS: ABSOLUTE BASOPHILS # (AUTO) 0.1 10^3/uL (0.0-0.2); ABSOLUTE LYMPHOCYTES (AUTO) 1.7 10^3/uL (0.5-4.7); ABSOLUTE MONOCYTES (AUTO) 0.6 10^3/uL (0.1-1.4); ABSOLUTE NEUT (AUTO) 3.4 10^3/uL (1.7-8.2); BASOPHILS % (AUTO) 1.1 % (0-2); EOSINOPHILS % (AUTO) 0.4 % (0-6); HEMATOCRIT 37.4 % (37.9-51.0); HEMOGLOBIN 12.5 g/dL (13.5-17.0); HGB HCT DIFFERENCE 0.1; LYMPHOCYTES % (AUTO) 28.9 % (13-45); MEAN CORPUSCULAR HEMOGLOBIN 34.7 pg (27.0-33.4); MEAN CORPUSCULAR HGB CONC 33.5 g/dL (32.0-36.0); MEAN CORPUSCULAR VOLUME 104 fl (80-97); MONOCYTES % (AUTO) 10.5 % (3-13); RED CELL DISTRIBUTION WIDTH 13.4 % (11.5-14.0); SEGMENTED NEUTROPHILS % (AUTO) 59.1 % (42-78); WHITE BLOOD COUNT 5.8 10^3/uL (4.0-10.5)
[2017-05-04 07:18] LABS: ALANINE AMINOTRANSFERASE 63 U/L (21-72); ALBUMIN 3.3 g/dL (3.5-5.0); ALKALINE PHOSPHATASE 71 U/L (38-126); ANION GAP 7 (5-19); ASPARTATE AMINO TRANSFERASE 85 U/L (17-59); BILIRUBIN,DIRECT 0.3 mg/dL (0.0-0.4); BILIRUBIN,TOTAL 0.9 mg/dL (0.2-1.3); BLOOD UREA NITROGEN 4 mg/dL (7-20); CALCIUM 8.1 mg/dL (8.4-10.2); CARBON DIOXIDE 23 mmol/L (22-30); CHLORIDE 110 mmol/L (98-107); CREATININE RESULT 0.72 mg/dL (0.52-1.25); GLUCOSE 73 mg/dL (75-110); MAGNESIUM 2.4 mg/dL (1.6-2.3); PHOSPHORUS 2.3 mg/dL (2.5-4.5); POTASSIUM 3.5 mmol/L (3.6-5.0); SODIUM 140.3 mmol/L (137-145)
[2017-05-04 07:26] LABS: CREATINE KINASE 2382 U/L (55-170)
[2017-05-04 07:31] LABS: CREATINE KINASE MB 4.12 ng/mL (<4.55); TROPONIN I 0.089 ng/mL
[2017-05-04] MEDS ORDERED: THIAMINE HCL IV SCH (08:15)
[2017-05-04] MEDS ORDERED: NORMAL SALINE IV SCH (08:15)
--- NOTE | 2017-05-04 08:22 | PDOC PROGRESS REPORT ---
Subjective Progress Note for:: 05/04/17 Subjective:: Patient developed agitation and restlessness last night. Patient developed withdrawal symptoms as well, pulling intravenous lines, Watkins catheter. Patient was initially placed on morphine in the emergency room, as well as intravenous Ativan and eventually the patient was maintained on continuous Ativan drip at 3 mg/h. Patient is on vinyl Restraints. No reported respiratory distress or temperature spikes, nausea or vomiting, chills or fever. Physical Exam Vital Signs: Temp Pulse Resp BP Pulse Ox 99.5 F 113 H 17 124/82 93 05/04/17 06:01 05/04/17 03:52 05/04/17 06:01 05/04/17 06:01 05/04/17 06:01 Intake & Output 05/03/17 05/04/17 05/05/17 06:59 06:59 06:59 Intake Total 5745 Output Total 2810 Balance 2935 Weight 67.8 kg General appearance: PRESENT: no acute distress, other - On 4. restraints Head exam: PRESENT: normocephalic Eye exam: PRESENT: EOMI Mouth exam: PRESENT: moist, neck supple Neck exam: ABSENT: JVD Respiratory exam: PRESENT: clear to auscultation kraig, unlabored. ABSENT: rhonchi, wheezes Cardiovascular exam: PRESENT: RRR, tachycardia. ABSENT: gallop GI/Abdominal exam: PRESENT: soft. ABSENT: distended, tenderness Extremities exam: ABSENT: pedal edema Neurological exam: PRESENT: alert, awake, other - Disoriented to person place and time, mild tremors. Skin exam: PRESENT: dry, warm. ABSENT: cyanosis Results Laboratory Results: 05/04/17 06:42 05/04/17 06:42 05/03/17 05/03/17 05/04/17 22:43 22:43 01:40 WBC 6.8 RBC 3.84 L Hgb 13.4 L Hct 39.7 MCV 103 H MCH 34.8 H MCHC 33.6 RDW 13.5 Plt Count 80 L Seg Neutrophils % 63.3 Lymphocytes % 22.6 Monocytes % 12.8 Eosinophils % 0.3 Basophils % 1.0 Absolute Neutrophils 4.3 Absolute Lymphocytes 1.5 Absolute Monocytes 0.9 Absolute Eosinophils 0.0 Absolute Basophils 0.1 Carbonic Acid 1.33 HCO3/H2CO3 Ratio 17:1 ABG pH 7.34 L ABG pCO2 44.2 ABG pO2 72.2 L ABG HCO3 23.5 ABG O2 Saturation 93.7 L ABG Base Excess -2.3 FiO2 ROOM AIR Sodium 135.2 L Potassium 3.5 L Chloride 103 Carbon Dioxide 23 Anion Gap 9 BUN 6 L Creatinine 0.77 Est GFR ( Amer) > 60 Est GFR (Non-Af Amer) > 60 Glucose 88 Calcium 8.7 Phosphorus Magnesium Total Bilirubin 1.1 AST 78 H ALT 76 H Alkaline Phosphatase 81 Total Protein 6.6 Albumin 3.8 05/04/17 05/04/17 06:42 06:42 WBC 5.8 RBC 3.60 L Hgb 12.5 L Hct 37.4 L MCV 104 H MCH 34.7 H MCHC 33.5 RDW 13.4 Plt Count 89 L Seg Neutrophils % 59.1 Lymphocytes % 28.9 Monocytes % 10.5 Eosinophils % 0.4 Basophils % 1.1 Absolute Neutrophils 3.4 Absolute Lymphocytes 1.7 Absolute Monocytes 0.6 Absolute Eosinophils 0.0 Absolute Basophils 0.1 Carbonic Acid HCO3/H2CO3 Ratio ABG pH ABG pCO2 ABG pO2 ABG HCO3 ABG O2 Saturation ABG Base Excess FiO2 Sodium 140.3 Potassium 3.5 L Chloride 110 H Carbon Dioxide 23 Anion Gap 7 BUN 4 L Creatinine 0.72 Est GFR ( Amer) > 60 Est GFR (Non-Af Amer) > 60 Glucose 73 L Calcium 8.1 L Phosphorus 2.3 L Magnesium 2.4 H Total Bilirubin 0.9 AST 85 H ALT 63 Alkaline Phosphatase 71 Total Protein 6.0 L Albumin 3.3 L 05/03/17 05/03/17 05/04/17 22:43 22:43 06:42 Creatine Kinase 469 H 2382 H CK-MB (CK-2) 2.32 Troponin I 0.041 05/04/17 06:42 Creatine Kinase CK-MB (CK-2) 4.12 Troponin I 0.089 Impressions: Head CT 05/03/17 01:53 IMPRESSION: NORMAL BRAIN CT WITHOUT CONTRAST. Assessment & Plan - Diagnosis (1) DTs (delirium tremens) Is this a current diagnosis for this admission?: Yes (2) Alcohol withdrawal seizure Qualifiers: Complication of substance-induced condition: with delirium Qualified Code(s): F10.231 - Alcohol dependence with withdrawal delirium Is this a current diagnosis for this admission?: Yes (3) Hypokalemia Is this a current diagnosis for this admission?: Yes (4) Essential hypertension Is this a current diagnosis for this admission?: Yes (5) Alcohol abuse Is this a current diagnosis for this admission?: Yes - Time Time Spent with patient: 25-34 minutes - Plan Summary Plan Summary: We are going toContinue IV hydration. Replace potassium. Monitor electrolytes. Check CPK. Continue Ativan drip for now. Continue thiamine supplementation as well as folic acid and multivitamin. Continue supportive care.
[2017-05-04] MEDS ORDERED: FOLIC ACID 1 MG TABLET PO SCH (10:00)
[2017-05-04] MEDS ORDERED: THIAMINE HCL 100 MG TABLET PO SCH (10:00)
[2017-05-04] MEDS ORDERED: THIAMINE HCL 100 MG, FOLIC ACID 1 MG in NORMAL SALINE 50 ML IV SCH (10:00)
[2017-05-04] MEDS: DOCUSATE SODIUM 100 MG CAPSULE PO SCH ×2 (10:37→17:30)
[2017-05-04] MEDS: NICOTINE 21 MG/24 HR PATCH.TD24 TD SCH (10:38)
[2017-05-04] MEDS: FLUOXETINE HCL 20 MG CAPSULE PO SCH (10:40)
[2017-05-04] MEDS: THIAMINE HCL IV SCH ×2 (10:42→21:16)
[2017-05-04] MEDS: NORMAL SALINE IV SCH ×2 (10:42→21:16)
[2017-05-04] MEDS: METOPROLOL TARTRATE 25 MG TABLET PO SCH ×2 (12:43→21:19)
[2017-05-04 15:40] LABS: CREATINE KINASE MB 4.32 ng/mL (<4.55); TROPONIN I 0.049 ng/mL
[2017-05-04 16:43] LABS: ARTERIAL BLOOD O2 SATURATION 96.4 % (94-98)
[2017-05-04] MEDS: NORMAL SALINE 1000 ML 1,000 ML with THIAMINE HCL 100 MG, MVI, ADULT NO.1 WITH VIT K 10 ... IV SCH ×4 (17:30)
[2017-05-04] MEDS ORDERED: ZIPRASIDONE MESYLATE INJ/PF 20 MG SDV IM ONE (18:30)
[2017-05-05] MEDS: ZIPRASIDONE MESYLATE INJ/PF 20 MG SDV IM PRN ×3 (00:03→19:08)
[2017-05-05] MEDS: LORAZEPAM 24 MG/ D5W 240 ML IV PRN ×6 (00:03→23:42)
[2017-05-05 02:00] LABS: ABSOLUTE BASOPHILS # (AUTO) 0.1 10^3/uL (0.0-0.2); ABSOLUTE LYMPHOCYTES (AUTO) 1.8 10^3/uL (0.5-4.7); ABSOLUTE MONOCYTES (AUTO) 0.9 10^3/uL (0.1-1.4); ABSOLUTE NEUT (AUTO) 4.5 10^3/uL (1.7-8.2); BASOPHILS % (AUTO) 1.1 % (0-2); EOSINOPHILS % (AUTO) 0.6 % (0-6); HEMATOCRIT 38.1 % (37.9-51.0); HEMOGLOBIN 12.9 g/dL (13.5-17.0); HGB HCT DIFFERENCE 0.6; LYMPHOCYTES % (AUTO) 24.6 % (13-45); MEAN CORPUSCULAR VOLUME 103 fl (80-97); MONOCYTES % (AUTO) 12.3 % (3-13); RED BLOOD COUNT 3.69 10^6/uL (4.35-5.55); RED CELL DISTRIBUTION WIDTH 13.1 % (11.5-14.0); SEGMENTED NEUTROPHILS % (AUTO) 61.4 % (42-78); WHITE BLOOD COUNT 7.3 10^3/uL (4.0-10.5)
[2017-05-05 02:14] LABS: ANION GAP 8 (5-19); CALCIUM 8.5 mg/dL (8.4-10.2); CARBON DIOXIDE 21 mmol/L (22-30); CHLORIDE 110 mmol/L (98-107); CREATININE RESULT 0.75 mg/dL (0.52-1.25); GLUCOSE 87 mg/dL (75-110); POTASSIUM 3.4 mmol/L (3.6-5.0); SODIUM 138.6 mmol/L (137-145)
[2017-05-05 02:19] LABS: BLOOD UREA NITROGEN < 2 mg/dL (7-20)
[2017-05-05] MEDS ORDERED: POTASSIUM CHLORIDE 20 MEQ/15 ML UDCUP PO ONE ×2 (03:02→05:00)
[2017-05-05] MEDS ORDERED: GLUCAGON,HUMAN RECOMB 1 MG INJ SUBCUT PRN (04:04)
[2017-05-05] MEDS ORDERED: DEXTROSE 40% GEL 15 GM TUBE PO PRN ×2 (04:04)
[2017-05-05] MEDS ORDERED: DEXTROSE 50%-WATER 25 GM/50 ML DISP.SYRIN IV PRN ×2 (04:04)
[2017-05-05] MEDS: POTASSI CL 20 MEQ/50 ML RIDER 20 MEQ/50 ML RTUPB IV SCH ×2 (04:57→06:45)
[2017-05-05] MEDS: NORMAL SALINE 1000 ML 1,000 ML IV PRN ×2 (05:07→15:38)
[2017-05-05] MEDS: HEPARIN SOD (PORCINE) 5,000 UNIT/ML 1 ML SYRINGE SUBCUT SCH ×3 (05:07→22:14)
--- NOTE | 2017-05-05 07:16 | EKG REPORT ---
SEVERITY:- ABNORMAL ECG - SINUS TACHYCARDIA MULTIPLE VPCs WITH PAIRED VENTRICULAR PREMATURE COMPLEXES LOW VOLTAGE IN FRONTAL LEADS BORDERLINE T ABNORMALITIES, INFERIOR LEADS BORDERLINE PROLONGED QT INTERVAL : Confirmed by: Mayi Sosa 05-May-2017 07:15:43
[2017-05-05 07:44] LABS: ABSOLUTE BASOPHILS # (AUTO) 0.1 10^3/uL (0.0-0.2); ABSOLUTE LYMPHOCYTES (AUTO) 1.7 10^3/uL (0.5-4.7); ABSOLUTE MONOCYTES (AUTO) 0.8 10^3/uL (0.1-1.4); ABSOLUTE NEUT (AUTO) 4.2 10^3/uL (1.7-8.2); BASOPHILS % (AUTO) 0.8 % (0-2); EOSINOPHILS % (AUTO) 0.6 % (0-6); HEMATOCRIT 37.4 % (37.9-51.0); HEMOGLOBIN 12.7 g/dL (13.5-17.0); HGB HCT DIFFERENCE 0.7; LYMPHOCYTES % (AUTO) 24.6 % (13-45); MEAN CORPUSCULAR HEMOGLOBIN 34.8 pg (27.0-33.4); MEAN CORPUSCULAR HGB CONC 33.9 g/dL (32.0-36.0); MEAN CORPUSCULAR VOLUME 102 fl (80-97); MONOCYTES % (AUTO) 12.2 % (3-13); RED BLOOD COUNT 3.65 10^6/uL (4.35-5.55); SEGMENTED NEUTROPHILS % (AUTO) 61.8 % (42-78); WHITE BLOOD COUNT 6.8 10^3/uL (4.0-10.5)
[2017-05-05 08:00] LABS: ANION GAP 10 (5-19); CALCIUM 8.8 mg/dL (8.4-10.2); CARBON DIOXIDE 23 mmol/L (22-30); CHLORIDE 108 mmol/L (98-107); CREATININE RESULT 0.69 mg/dL (0.52-1.25); GLUCOSE 81 mg/dL (75-110); POTASSIUM 4.1 mmol/L (3.6-5.0); SODIUM 141.1 mmol/L (137-145)
--- NOTE | 2017-05-05 08:01 | PDOC PROGRESS REPORT ---
Subjective Progress Note for:: 05/05/17 Subjective:: Patient reportedly calm when family is around, but subsequently after we will became aggressive. Patient still having tremors. Patient trying to bite restraints and staff. Patient noted to have fever yesterday and last night. No reported respiratory distress. No reported diarrhea. Potassium was low and replacement was given. Patient remained on Ativan drip and as needed Geodon controls his agitation. Physical Exam Vital Signs: Temp Pulse Resp BP Pulse Ox 99.9 F 93 18 104/102 H 98 05/05/17 07:47 05/05/17 07:47 05/05/17 07:47 05/05/17 07:47 05/05/17 07:47 Intake & Output 05/04/17 05/05/17 05/06/17 06:59 06:59 06:59 Intake Total 5745 5909 Output Total 2810 3955 200 Balance 2935 1954 -200 Weight 67.8 kg 69.1 kg General appearance: PRESENT: no acute distress, other - Confused Head exam: PRESENT: normocephalic Eye exam: PRESENT: EOMI Mouth exam: PRESENT: moist, neck supple Neck exam: ABSENT: JVD Respiratory exam: PRESENT: clear to auscultation kraig - Poor effort however. ABSENT: rhonchi, wheezes Cardiovascular exam: PRESENT: RRR. ABSENT: gallop GI/Abdominal exam: PRESENT: hypoactive bowel sounds, soft. ABSENT: distended, tenderness Extremities exam: ABSENT: pedal edema Neurological exam: PRESENT: awake, other - Confused Psychiatric exam: ABSENT: agitated - At this time Skin exam: PRESENT: dry, warm. ABSENT: cyanosis Results Laboratory Results: 05/03/17 05/04/17 05/04/17 10:39 16:30 19:02 WBC RBC Hgb Hct MCV MCH MCHC RDW Plt Count Seg Neutrophils % Lymphocytes % Monocytes % Eosinophils % Basophils % Absolute Neutrophils Absolute Lymphocytes Absolute Monocytes Absolute Eosinophils Absolute Basophils Carbonic Acid 0.98 L HCO3/H2CO3 Ratio 22:1 ABG pH 7.45 ABG pCO2 32.4 L ABG pO2 79.8 L ABG HCO3 22.2 ABG O2 Saturation 96.4 ABG Base Excess -1.0 FiO2 ROOM AIR Sodium Potassium 4.0 Chloride Carbon Dioxide Anion Gap BUN Creatinine Est GFR ( Amer) Est GFR (Non-Af Amer) Glucose Calcium Magnesium Vitamin B1 287.4 H TSH 05/05/17 05/05/17 05/05/17 01:47 01:47 01:47 WBC 7.3 RBC 3.69 L Hgb 12.9 L Hct 38.1 MCV 103 H MCH 35.0 H MCHC 34.0 RDW 13.1 Plt Count 73 L Seg Neutrophils % 61.4 Lymphocytes % 24.6 Monocytes % 12.3 Eosinophils % 0.6 Basophils % 1.1 Absolute Neutrophils 4.5 Absolute Lymphocytes 1.8 Absolute Monocytes 0.9 Absolute Eosinophils 0.0 Absolute Basophils 0.1 Carbonic Acid HCO3/H2CO3 Ratio ABG pH ABG pCO2 ABG pO2 ABG HCO3 ABG O2 Saturation ABG Base Excess FiO2 Sodium 138.6 Potassium 3.4 L Chloride 110 H Carbon Dioxide 21 L Anion Gap 8 BUN < 2 L Creatinine 0.75 Est GFR ( Amer) > 60 Est GFR (Non-Af Amer) > 60 Glucose 87 Calcium 8.5 Magnesium 2.0 Vitamin B1 TSH 1.48 05/03/17 05/03/17 05/04/17 22:43 22:43 06:42 Creatine Kinase 469 H 2382 H CK-MB (CK-2) 2.32 Troponin I 0.041 05/04/17 05/04/17 05/04/17 06:42 15:10 15:10 Creatine Kinase 4637 H CK-MB (CK-2) 4.12 4.32 Troponin I 0.089 0.049 05/05/17 01:47 Creatine Kinase CK-MB (CK-2) Troponin I 0.076 Impressions: Head CT 05/03/17 01:53 IMPRESSION: NORMAL BRAIN CT WITHOUT CONTRAST. Assessment & Plan - Diagnosis (1) DTs (delirium tremens) Is this a current diagnosis for this admission?: Yes (2) Alcohol withdrawal seizure Qualifiers: Complication of substance-induced condition: with delirium Qualified Code(s): F10.231 - Alcohol dependence with withdrawal delirium Is this a current diagnosis for this admission?: Yes (3) Hypokalemia Is this a current diagnosis for this admission?: Yes (4) Essential hypertension Is this a current diagnosis for this admission?: Yes (5) Alcohol abuse Is this a current diagnosis for this admission?: Yes - Time Time Spent with patient: 25-34 minutes - Plan Summary Plan Summary: We will obtain blood cultures urine cultures as well as chest x-ray. We will cover for aspiration pneumonia. In the meantime continue to monitor electrolytes and continue supplements and hydration. Continue supportive care. We will continue to wean Ativan. Keep n.p.o. for now.
[2017-05-05 08:31] LABS: BLOOD UREA NITROGEN < 2 mg/dL (7-20); CREATINE KINASE 6784 U/L (55-170)
[2017-05-05 08:36] LABS: APPEARANCE,URINE CLEAR; BILIRUBIN,URINE NEGATIVE (NEGATIVE); GLUCOSE, URINE NEGATIVE (NEGATIVE); KETONES,URINE 20 mg/dL (NEGATIVE); LEUKOCYTE ESTERASE,URINE NEGATIVE (NEGATIVE); NITRITE,URINE NEGATIVE (NEGATIVE); PROTEIN,URINE NEGATIVE (NEGATIVE); URINE SPECIFIC GRAVITY 1.008; UROBILINOGEN,URINE NEGATIVE mg/dL (<2.0)
[2017-05-05] MEDS: NORMAL SALINE IV SCH ×2 (09:01→22:12)
[2017-05-05] MEDS: THIAMINE HCL IV SCH ×2 (09:01→22:12)
[2017-05-05] MEDS: LEVOFLOXACIN 750 MG/D5W RTU 150 ML IV SCH (09:05)
[2017-05-05] MEDS: METOPROLOL TARTRATE 25 MG TABLET PO SCH ×2 (09:06→22:11)
[2017-05-05] MEDS: FLUOXETINE HCL 20 MG CAPSULE PO SCH (09:06)
[2017-05-05] MEDS: DOCUSATE SODIUM 100 MG CAPSULE PO SCH ×2 (09:06→17:48)
[2017-05-05] MEDS: NICOTINE 21 MG/24 HR PATCH.TD24 TD SCH (09:06)
--- NOTE | 2017-05-05 09:22 | RADIOLOGY REPORT (SQ) ---
EXAM DESCRIPTION: CHEST SINGLE VIEW COMPLETED DATE/TIME: 05/05/2017 8:41 am REASON FOR STUDY: fever COMPARISON: Chest film 12/30/2016, 07/06/2013 EXAM PARAMETERS: NUMBER OF VIEWS: One view. TECHNIQUE: Single frontal radiographic view of the chest acquired. RADIATION DOSE: NA LIMITATIONS: None. FINDINGS: LUNGS AND PLEURA: No opacities, masses or pneumothorax. No pleural effusion. MEDIASTINUM AND HILAR STRUCTURES: No masses. Contour normal. HEART AND VASCULAR STRUCTURES: Heart normal in size. Normal vasculature. BONES: Multiple old healed right rib fractures HARDWARE: None in the chest. OTHER: No other significant finding. IMPRESSION: NO ACUTE RADIOGRAPHIC FINDING IN THE CHEST. TECHNICAL DOCUMENTATION: JOB ID: [id number]
[2017-05-05] MEDS: IPRATROPIUM/ALBUTEROL 0.5-2.5 MG/3 ML AMPUL NEB SCH ×2 (10:15→16:01)
[2017-05-05] MEDS: CLINDAMYCIN 600 MG/D5W RTU 50 ML IV SCH ×2 (13:15→22:13)
--- NOTE | 2017-05-05 14:48 | Physician Advisory Note ---
Physician Advisor ProgressNote .: Pursuant to the plan for [facility], I have reviewed the medical record for this patient. Physician Advisor Statement: Please consider documentin. "Acute rhabdomyolysis due to DT's" 2. "mild hyponatremia, resolved, likely due to " 3. "suspected protein-calorie malnutrition [state mild, mod, or severe] with BMI 20.7, BUN <2, Cr 0.7, ____[?wt loss, ?appetite loss, ]" [if possible, give specifics on intake, wt loss, loss of SQ fat & muscle mass, diminished hand web services professional strength, & clinical importance such as (A) nutritional assessment ordered, (B) modified diet or supplements ordered, (C) additional labs ordered, (D) prolonged wound healing time, (E) delayed infxn clearance] Thanks! CK
[2017-05-05] MEDS: NORMAL SALINE 1000 ML 1,000 ML with THIAMINE HCL 100 MG, MVI, ADULT NO.1 WITH VIT K 10 ... IV SCH ×4 (17:01)
[2017-05-05] MEDS: DEXTROSE 5%-NORMAL SALINE 1,000 ML IV PRN (22:13)
[2017-05-06] MEDS: IPRATROPIUM/ALBUTEROL 0.5-2.5 MG/3 ML AMPUL NEB SCH ×3 (00:21→16:11)
[2017-05-06] MEDS: ZIPRASIDONE MESYLATE INJ/PF 20 MG SDV IM PRN ×3 (00:40→16:17)
[2017-05-06] MEDS: LORAZEPAM 24 MG/ D5W 240 ML IV PRN ×4 (02:30→20:47)
[2017-05-06 04:34] LABS: ANION GAP 8 (5-19); CALCIUM 8.1 mg/dL (8.4-10.2); CARBON DIOXIDE 21 mmol/L (22-30); CHLORIDE 108 mmol/L (98-107); CREATININE RESULT 0.64 mg/dL (0.52-1.25); GLUCOSE 128 mg/dL (75-110); POTASSIUM 3.6 mmol/L (3.6-5.0); SODIUM 136.9 mmol/L (137-145)
[2017-05-06 04:45] LABS: BLOOD UREA NITROGEN < 2 mg/dL (7-20)
[2017-05-06 04:58] LABS: ABSOLUTE LYMPHOCYTES (AUTO) 1.3 10^3/uL (0.5-4.7); ABSOLUTE MONOCYTES (AUTO) 1.2 10^3/uL (0.1-1.4); ABSOLUTE NEUT (AUTO) 4.1 10^3/uL (1.7-8.2); BASOPHILS % (AUTO) 0.7 % (0-2); EOSINOPHILS % (AUTO) 0.5 % (0-6); HEMOGLOBIN 12.9 g/dL (13.5-17.0); HGB HCT DIFFERENCE 0.7; MEAN CORPUSCULAR HEMOGLOBIN 34.6 pg (27.0-33.4); MEAN CORPUSCULAR HGB CONC 33.8 g/dL (32.0-36.0); MEAN CORPUSCULAR VOLUME 102 fl (80-97); MONOCYTES % (AUTO) 17.4 % (3-13); RED BLOOD COUNT 3.71 10^6/uL (4.35-5.55); SEGMENTED NEUTROPHILS % (AUTO) 61.4 % (42-78); WHITE BLOOD COUNT 6.7 10^3/uL (4.0-10.5)
[2017-05-06 05:00] LABS: CREATINE KINASE 7319 U/L (55-170)
[2017-05-06] MEDS: DEXTROSE 5%-NORMAL SALINE 1,000 ML IV PRN ×2 (05:32→14:26)
[2017-05-06] MEDS: CLINDAMYCIN 600 MG/D5W RTU 50 ML IV SCH ×3 (05:35→21:14)
[2017-05-06] MEDS: HEPARIN SOD (PORCINE) 5,000 UNIT/ML 1 ML SYRINGE SUBCUT SCH ×3 (05:36→21:15)
--- NOTE | 2017-05-06 08:06 | PDOC PROGRESS REPORT ---
Subjective Progress Note for:: 05/06/17 Subjective:: Patient reportedly agitated last night a nd ativan drip increased. When family is around, patie nt calms down. patient still having tremors but seems less this am. Patient noted to have fever , cxr was neg., cultures are PND. No reported respiratory distress. No reported diarrhea. On as needed Geodon. Physical Exam Vital Signs: Temp Pulse Resp BP Pulse Ox 98.8 F 108 H 21 H 130/95 H 98 05/06/17 06:15 05/05/17 20:00 05/06/17 06:15 05/06/17 05:38 05/06/17 06:15 Intake & Output 05/05/17 05/06/17 05/07/17 06:59 06:59 06:59 Intake Total 5909 5277 Output Total 3955 4175 Balance 1954 1102 Weight 69.1 kg 69.4 kg General appearance: PRESENT: no acute distress, other - Confused Head exam: PRESENT: normocephalic Eye exam: PRESENT: EOMI Mouth exam: PRESENT: moist, neck supple Neck exam: ABSENT: JVD Respiratory exam: PRESENT: clear to auscultation kraig. ABSENT: rhonchi, wheezes Cardiovascular exam: PRESENT: RRR. ABSENT: gallop, tachycardia GI/Abdominal exam: PRESENT: hypoactive bowel sounds, soft. ABSENT: distended, tenderness Extremities exam: ABSENT: pedal edema Neurological exam: PRESENT: other - Confused Psychiatric exam: ABSENT: agitated Focused psych exam: PRESENT: restlessness - Minimal Skin exam: PRESENT: dry, warm. ABSENT: cyanosis Results Laboratory Results: 05/06/17 04:00 05/06/17 04:00 05/05/17 05/05/17 05/05/17 07:30 07:30 08:05 WBC 6.8 RBC 3.65 L Hgb 12.7 L Hct 37.4 L MCV 102 H MCH 34.8 H MCHC 33.9 RDW 13.0 Plt Count 81 L Seg Neutrophils % 61.8 Lymphocytes % 24.6 Monocytes % 12.2 Eosinophils % 0.6 Basophils % 0.8 Absolute Neutrophils 4.2 Absolute Lymphocytes 1.7 Absolute Monocytes 0.8 Absolute Eosinophils 0.0 Absolute Basophils 0.1 Sodium 141.1 Potassium 4.1 Chloride 108 H Carbon Dioxide 23 Anion Gap 10 BUN < 2 L Creatinine 0.69 Est GFR ( Amer) > 60 Est GFR (Non-Af Amer) > 60 Glucose 81 Calcium 8.8 Urine Color YELLOW Urine Appearance CLEAR Urine pH 6.0 Ur Specific Arnold 1.008 Urine Protein NEGATIVE Urine Glucose (UA) NEGATIVE Urine Ketones 20 H Urine Blood NEGATIVE Urine Nitrite NEGATIVE Ur Leukocyte Esterase NEGATIVE Urine WBC (Auto) 0 Urine RBC (Auto) 1 05/06/17 05/06/17 04:00 04:00 WBC 6.7 RBC 3.71 L Hgb 12.9 L Hct 38.0 MCV 102 H MCH 34.6 H MCHC 33.8 RDW 13.0 Plt Count 82 L Seg Neutrophils % 61.4 Lymphocytes % 20.0 Monocytes % 17.4 H Eosinophils % 0.5 Basophils % 0.7 Absolute Neutrophils 4.1 Absolute Lymphocytes 1.3 Absolute Monocytes 1.2 Absolute Eosinophils 0.0 Absolute Basophils 0.0 Sodium 136.9 L Potassium 3.6 Chloride 108 H Carbon Dioxide 21 L Anion Gap 8 BUN < 2 L Creatinine 0.64 Est GFR ( Amer) > 60 Est GFR (Non-Af Amer) > 60 Glucose 128 H Calcium 8.1 L Urine Color Urine Appearance Urine pH Ur Specific Arnold Urine Protein Urine Glucose (UA) Urine Ketones Urine Blood Urine Nitrite Ur Leukocyte Esterase Urine WBC (Auto) Urine RBC (Auto) 05/03/17 05/03/17 05/04/17 22:43 22:43 06:42 Creatine Kinase 469 H 2382 H CK-MB (CK-2) 2.32 Troponin I 0.041 05/04/17 05/04/17 05/04/17 06:42 15:10 15:10 Creatine Kinase 4637 H CK-MB (CK-2) 4.12 4.32 Troponin I 0.089 0.049 05/05/17 05/05/17 05/06/17 01:47 07:30 04:00 Creatine Kinase 6784 H 7319 H CK-MB (CK-2) Troponin I 0.076 Impressions: Head CT 05/03/17 01:53 IMPRESSION: NORMAL BRAIN CT WITHOUT CONTRAST. Chest X-Ray 05/05/17 00:00 IMPRESSION: NO ACUTE RADIOGRAPHIC FINDING IN THE CHEST. Assessment & Plan - Diagnosis (1) DTs (delirium tremens) Is this a current diagnosis for this admission?: Yes (2) Alcohol withdrawal seizure Qualifiers: Complication of substance-induced condition: with delirium Qualified Code(s): F10.231 - Alcohol dependence with withdrawal delirium Is this a current diagnosis for this admission?: Yes (3) Hypokalemia Is this a current diagnosis for this admission?: Yes (4) Essential hypertension Is this a current diagnosis for this admission?: Yes (5) Alcohol abuse Is this a current diagnosis for this admission?: Yes - Time Time Spent with patient: 25-34 minutes - Plan Summary Plan Summary: Continue to monitor electrolytes. Change IV fluid to dextrose containing solution. We will try to wean restraints today. Continue the Ativan drip but taper. Continue as needed Geodon. Continue supplements. Continue to monitor CPK. Continue to monitor bicarbonate. May need sodium bicarbonate drip if CO2 continues to drop.
[2017-05-06] MEDS ORDERED: ZIPRASIDONE MESYLATE INJ/PF 20 MG SDV IM ONE (08:35)
[2017-05-06] MEDS ORDERED: THIAMINE HCL 250 MG in NORMAL SALINE 50 ML IV SCH (10:00)
[2017-05-06] MEDS ORDERED: LORAZEPAM INJ 2 MG/1 ML VIAL ONE ×2 (10:35→11:04)
[2017-05-06] MEDS: DOCUSATE SODIUM 100 MG CAPSULE PO SCH ×2 (10:55→16:54)
[2017-05-06] MEDS: FLUOXETINE HCL 20 MG CAPSULE PO SCH (10:55)
[2017-05-06] MEDS: NICOTINE 21 MG/24 HR PATCH.TD24 TD SCH (10:55)
[2017-05-06] MEDS: LEVOFLOXACIN 750 MG/D5W RTU 150 ML IV SCH (11:46)
[2017-05-06] MEDS: METOPROLOL TARTRATE 25 MG TABLET PO SCH ×2 (11:48→21:15)
[2017-05-06] MEDS: NORMAL SALINE 1000 ML 1,000 ML with THIAMINE HCL 100 MG, MVI, ADULT NO.1 WITH VIT K 10 ... IV SCH ×4 (21:14)
[2017-05-07] MEDS: LORAZEPAM 24 MG/ D5W 240 ML IV PRN (03:59)
[2017-05-07 05:01] LABS: HEMATOCRIT 39.2 % (37.9-51.0); HEMOGLOBIN 13.1 g/dL (13.5-17.0); HGB HCT DIFFERENCE 0.1; MEAN CORPUSCULAR HEMOGLOBIN 34.6 pg (27.0-33.4); MEAN CORPUSCULAR HGB CONC 33.4 g/dL (32.0-36.0); MEAN CORPUSCULAR VOLUME 104 fl (80-97); RED BLOOD COUNT 3.79 10^6/uL (4.35-5.55); RED CELL DISTRIBUTION WIDTH 13.5 % (11.5-14.0); WHITE BLOOD COUNT 6.5 10^3/uL (4.0-10.5)
[2017-05-07 05:02] LABS: ANION GAP 6 (5-19); BLOOD UREA NITROGEN 4 mg/dL (7-20); CALCIUM 8.8 mg/dL (8.4-10.2); CARBON DIOXIDE 26 mmol/L (22-30); CHLORIDE 109 mmol/L (98-107); CREATININE RESULT 0.73 mg/dL (0.52-1.25); GLUCOSE 110 mg/dL (75-110); POTASSIUM 3.7 mmol/L (3.6-5.0); SODIUM 141.2 mmol/L (137-145)
[2017-05-07 05:17] LABS: CREATINE KINASE 2512 U/L (55-170)
[2017-05-07] MEDS: CLINDAMYCIN 600 MG/D5W RTU 50 ML IV SCH ×3 (05:50→21:19)
[2017-05-07] MEDS: HEPARIN SOD (PORCINE) 5,000 UNIT/ML 1 ML SYRINGE SUBCUT SCH ×3 (05:50→21:20)
[2017-05-07] MEDS: DEXTROSE 5%-NORMAL SALINE 1,000 ML IV PRN (07:41)
[2017-05-07] MEDS ORDERED: LORAZEPAM INJ 2 MG/1 ML VIAL IV PRN (08:29)
--- NOTE | 2017-05-07 08:36 | PDOC PROGRESS REPORT ---
Subjective Progress Note for:: 05/07/17 Subjective:: Patient is doing much better. Patient is more awake alert and oriented. Patient Ativan drip down to 1-2 mg. He is off restraints. He is tolerating oral intake well. No reported temperature spikes, respiratory distress, diarrhea, nausea or vomiting. Physical Exam Vital Signs: Temp Pulse Resp BP Pulse Ox 99.3 F 98 19 129/95 H 96 05/07/17 07:56 05/07/17 07:56 05/07/17 07:56 05/07/17 07:56 05/07/17 07:56 Intake & Output 05/06/17 05/07/17 05/08/17 06:59 06:59 06:59 Intake Total 5277 4419 414 Output Total 4175 4720 250 Balance 1102 -301 164 Weight 69.4 kg 70.4 kg General appearance: PRESENT: no acute distress, cooperative Head exam: PRESENT: normocephalic Eye exam: PRESENT: EOMI Mouth exam: PRESENT: moist, neck supple Neck exam: ABSENT: JVD Respiratory exam: PRESENT: clear to auscultation kraig. ABSENT: rhonchi, wheezes Cardiovascular exam: PRESENT: RRR. ABSENT: gallop GI/Abdominal exam: PRESENT: normal bowel sounds, soft. ABSENT: distended Extremities exam: ABSENT: pedal edema Neurological exam: PRESENT: alert, awake Skin exam: PRESENT: dry, warm. ABSENT: cyanosis Results Laboratory Results: 05/07/17 04:13 05/07/17 04:13 05/07/17 05/07/17 04:13 04:13 WBC 6.5 RBC 3.79 L Hgb 13.1 L Hct 39.2 MCV 104 H MCH 34.6 H MCHC 33.4 RDW 13.5 Plt Count 90 L Sodium 141.2 Potassium 3.7 Chloride 109 H Carbon Dioxide 26 Anion Gap 6 BUN 4 L Creatinine 0.73 Est GFR ( Amer) > 60 Est GFR (Non-Af Amer) > 60 Glucose 110 Calcium 8.8 05/03/17 05/03/17 05/04/17 22:43 22:43 06:42 Creatine Kinase 469 H 2382 H CK-MB (CK-2) 2.32 Troponin I 0.041 05/04/17 05/04/17 05/04/17 06:42 15:10 15:10 Creatine Kinase 4637 H CK-MB (CK-2) 4.12 4.32 Troponin I 0.089 0.049 05/05/17 05/05/17 05/06/17 01:47 07:30 04:00 Creatine Kinase 6784 H 7319 H CK-MB (CK-2) Troponin I 0.076 05/07/17 04:13 Creatine Kinase 2512 H CK-MB (CK-2) Troponin I Impressions: Head CT 05/03/17 01:53 IMPRESSION: NORMAL BRAIN CT WITHOUT CONTRAST. Chest X-Ray 05/05/17 00:00 IMPRESSION: NO ACUTE RADIOGRAPHIC FINDING IN THE CHEST. Assessment & Plan - Diagnosis (1) DTs (delirium tremens) Is this a current diagnosis for this admission?: Yes (2) Alcohol withdrawal seizure Qualifiers: Complication of substance-induced condition: with delirium Qualified Code(s): F10.231 - Alcohol dependence with withdrawal delirium Is this a current diagnosis for this admission?: Yes (3) Hypokalemia Is this a current diagnosis for this admission?: Yes (4) Essential hypertension Is this a current diagnosis for this admission?: Yes (5) Alcohol abuse Is this a current diagnosis for this admission?: Yes - Time Time Spent with patient: 25-34 minutes - Plan Summary Plan Summary: Patient continues to improve. We will continue IV hydration. Transition to oral Ativan. Continue with IV Ativan as needed for agitation. Discontinue restraints. Transferred to [facility]. Continue supportive care.
[2017-05-07] MEDS: IPRATROPIUM/ALBUTEROL 0.5-2.5 MG/3 ML AMPUL NEB SCH ×3 (08:53→15:44)
[2017-05-07] MEDS: LEVOFLOXACIN 750 MG/D5W RTU 150 ML IV SCH (09:16)
[2017-05-07] MEDS: FLUOXETINE HCL 20 MG CAPSULE PO SCH (09:39)
[2017-05-07] MEDS: NICOTINE 21 MG/24 HR PATCH.TD24 TD SCH (09:39)
[2017-05-07] MEDS: DOCUSATE SODIUM 100 MG CAPSULE PO SCH ×2 (09:40→17:48)
[2017-05-07] MEDS: METOPROLOL TARTRATE 25 MG TABLET PO SCH ×2 (09:57→21:20)
[2017-05-07] MEDS: LORAZEPAM 1 MG TABLET PO SCH ×2 (11:23→17:47)
[2017-05-07] MEDS ORDERED: POTASSIUM CHLORIDE 10 MEQ TABLET.SA PO ONE ×2 (11:54→13:30)
[2017-05-07] MEDS: NORMAL SALINE 1000 ML 1,000 ML with THIAMINE HCL 100 MG, MVI, ADULT NO.1 WITH VIT K 10 ... IV SCH ×4 (17:47)
[2017-05-08] MEDS: IPRATROPIUM/ALBUTEROL 0.5-2.5 MG/3 ML AMPUL NEB SCH ×4 (00:07→23:28)
[2017-05-08] MEDS: LORAZEPAM 1 MG TABLET PO SCH ×4 (00:56→22:06)
[2017-05-08 05:27] LABS: ANION GAP 9 (5-19); BLOOD UREA NITROGEN 3 mg/dL (7-20); CALCIUM 8.7 mg/dL (8.4-10.2); CARBON DIOXIDE 24 mmol/L (22-30); CHLORIDE 107 mmol/L (98-107); CREATININE RESULT 0.65 mg/dL (0.52-1.25); GLUCOSE 105 mg/dL (75-110); MAGNESIUM 1.5 mg/dL (1.6-2.3); POTASSIUM 3.6 mmol/L (3.6-5.0)
[2017-05-08] MEDS: HEPARIN SOD (PORCINE) 5,000 UNIT/ML 1 ML SYRINGE SUBCUT SCH ×3 (06:32→22:08)
[2017-05-08] MEDS: CLINDAMYCIN 600 MG/D5W RTU 50 ML IV SCH ×3 (06:40→22:05)
[2017-05-08] MEDS: FLUOXETINE HCL 20 MG CAPSULE PO SCH (09:45)
[2017-05-08] MEDS: DOCUSATE SODIUM 100 MG CAPSULE PO SCH ×2 (09:45→17:33)
[2017-05-08] MEDS: NICOTINE 21 MG/24 HR PATCH.TD24 TD SCH (09:45)
[2017-05-08] MEDS: METOPROLOL TARTRATE 25 MG TABLET PO SCH ×2 (09:45→22:07)
[2017-05-08] MEDS: LEVOFLOXACIN 750 MG/D5W RTU 150 ML IV SCH (09:46)
[2017-05-08] MEDS ORDERED: DEXTROSE 5%-NORMAL SALINE 1,000 ML IV PRN (11:00)
--- NOTE | 2017-05-08 11:04 | PDOC PROGRESS REPORT ---
Subjective Progress Note for:: 05/08/17 Subjective:: Awake and alert and oriented. No reported agitation or restlessness. No aggressive behaviors well. Tolerating oral intake well. Complains of fullness on the right ear. Still with tremors but patient stated he had a for long time. No chills or fever. No shortness of breath. No reported seizures. Physical Exam Vital Signs: Temp Pulse Resp BP Pulse Ox 98.1 F 102 H 16 133/96 H 97 05/08/17 07:14 05/08/17 08:33 05/08/17 08:33 05/08/17 07:14 05/08/17 07:14 Intake & Output 05/07/17 05/08/17 05/09/17 06:59 06:59 06:59 Intake Total 4419 3762 Output Total 8055 1485 Balance -301 -1163 Weight 70.4 kg 74.3 kg General appearance: PRESENT: no acute distress, cooperative Head exam: PRESENT: normocephalic Eye exam: PRESENT: EOMI Ear exam: PRESENT: other - Dry cerumen noted on the right ear and unable to visualize tympanic membrane due to cerumen Mouth exam: PRESENT: moist, neck supple Neck exam: ABSENT: JVD Respiratory exam: PRESENT: clear to auscultation kraig. ABSENT: rhonchi, wheezes Cardiovascular exam: PRESENT: RRR. ABSENT: gallop GI/Abdominal exam: PRESENT: soft. ABSENT: distended, tenderness Extremities exam: ABSENT: pedal edema Results Laboratory Results: 05/07/17 04:13 05/08/17 04:47 05/07/17 05/08/17 17:37 04:47 Sodium 140.0 Potassium 3.6 Chloride 107 Carbon Dioxide 24 Anion Gap 9 BUN 3 L Creatinine 0.65 Est GFR ( Amer) > 60 Est GFR (Non-Af Amer) > 60 Glucose 105 Calcium 8.7 Magnesium 1.5 L 1.5 L 05/05/17 08:05 Watkins Catheter Urine Culture - Final NO GROWTH 2 DAYS 05/03/17 05/03/17 05/04/17 22:43 22:43 06:42 Creatine Kinase 469 H 2382 H CK-MB (CK-2) 2.32 Troponin I 0.041 05/04/17 05/04/17 05/04/17 06:42 15:10 15:10 Creatine Kinase 4637 H CK-MB (CK-2) 4.12 4.32 Troponin I 0.089 0.049 05/05/17 05/05/17 05/06/17 01:47 07:30 04:00 Creatine Kinase 6784 H 7319 H CK-MB (CK-2) Troponin I 0.076 05/07/17 04:13 Creatine Kinase 2512 H CK-MB (CK-2) Troponin I Impressions: Head CT 05/03/17 01:53 IMPRESSION: NORMAL BRAIN CT WITHOUT CONTRAST. Chest X-Ray 05/05/17 00:00 IMPRESSION: NO ACUTE RADIOGRAPHIC FINDING IN THE CHEST. Assessment & Plan - Diagnosis (1) DTs (delirium tremens) Is this a current diagnosis for this admission?: Yes (2) Alcohol withdrawal seizure Qualifiers: Complication of substance-induced condition: with delirium Qualified Code(s): F10.231 - Alcohol dependence with withdrawal delirium Is this a current diagnosis for this admission?: Yes (3) Hypokalemia Is this a current diagnosis for this admission?: Yes (4) Essential hypertension Is this a current diagnosis for this admission?: Yes (5) Alcohol abuse Is this a current diagnosis for this admission?: Yes - Time Time Spent with patient: 25-34 minutes - Plan Summary Plan Summary: Begin physical therapy. Decrease intravenous fluids. Decrease oral Ativan dose and frequency. Try Debrox. Continue supportive care.
[2017-05-08] MEDS ORDERED: MAGNESIUM SULFATE/D5W 100 ML IV ONE (12:30)
[2017-05-08] MEDS: CARBAMIDE PEROXIDE 6.5% OTIC SOLN 15 ML AD SCH ×2 (14:00→18:00)
[2017-05-08] MEDS: NORMAL SALINE 1000 ML 1,000 ML with THIAMINE HCL 100 MG, MVI, ADULT NO.1 WITH VIT K 10 ... IV SCH ×4 (17:33)
[2017-05-09 02:22] LABS: ANION GAP 10 (5-19); BLOOD UREA NITROGEN 6 mg/dL (7-20); CALCIUM 9.4 mg/dL (8.4-10.2); CARBON DIOXIDE 24 mmol/L (22-30); CHLORIDE 104 mmol/L (98-107); CREATININE RESULT 0.74 mg/dL (0.52-1.25); GLUCOSE 107 mg/dL (75-110); MAGNESIUM 1.8 mg/dL (1.6-2.3); POTASSIUM 4.1 mmol/L (3.6-5.0); SODIUM 137.6 mmol/L (137-145)
[2017-05-09] MEDS: HEPARIN SOD (PORCINE) 5,000 UNIT/ML 1 ML SYRINGE SUBCUT SCH ×3 (05:18→21:28)
[2017-05-09] MEDS: CLINDAMYCIN 600 MG/D5W RTU 50 ML IV SCH ×2 (06:22→13:30)
[2017-05-09] MEDS: LORAZEPAM 1 MG TABLET PO SCH ×2 (06:22→13:26)
[2017-05-09] MEDS: IPRATROPIUM/ALBUTEROL 0.5-2.5 MG/3 ML AMPUL NEB SCH ×3 (08:26→23:43)
--- NOTE | 2017-05-09 08:29 | EKG REPORT ---
SEVERITY:- ABNORMAL ECG - SINUS TACHYCARDIA MULTIPLE VENTRICULAR PREMATURE COMPLEXES LOW VOLTAGE IN FRONTAL LEADS BORDERLINE T ABNORMALITIES, INFERIOR LEADS BORDERLINE PROLONGED QT INTERVAL : Confirmed by: Edmund Ta MD 09-May-2017 08:28:30
[2017-05-09] MEDS: THIAMINE HCL 100 MG TABLET PO SCH (09:28)
[2017-05-09] MEDS: FLUOXETINE HCL 20 MG CAPSULE PO SCH (09:28)
[2017-05-09] MEDS: DOCUSATE SODIUM 100 MG CAPSULE PO SCH ×2 (09:28→17:20)
[2017-05-09] MEDS: NICOTINE 21 MG/24 HR PATCH.TD24 TD SCH (09:29)
[2017-05-09] MEDS: FOLIC ACID 1 MG TABLET PO SCH (09:29)
[2017-05-09] MEDS: METOPROLOL TARTRATE 25 MG TABLET PO SCH ×2 (09:29→21:27)
[2017-05-09] MEDS ORDERED: MAGNESIUM OXIDE 400 MG TABLET PO ONE (09:30)
[2017-05-09] MEDS: CARBAMIDE PEROXIDE 6.5% OTIC SOLN 15 ML AD SCH ×3 (09:32→18:00)
[2017-05-09] MEDS ORDERED: LEVOFLOXACIN 750 MG TABLET PO SCH (10:00)
--- NOTE | 2017-05-09 15:13 | PDOC PROGRESS REPORT ---
Subjective Progress Note for:: 05/09/17 Subjective:: The patient voices no complaints at all. There is no chest pain or shortness of breath. Patient is able to ambulate around without difficulty. No chills or fever. No agitation. No nausea or vomiting. There is no dizziness. Physical Exam Vital Signs: Temp Pulse Resp BP Pulse Ox 98.1 F 89 16 131/91 H 97 05/09/17 07:34 05/09/17 08:28 05/09/17 08:28 05/09/17 07:34 05/09/17 08:28 Intake & Output 05/08/17 05/09/17 05/10/17 06:59 06:59 06:59 Intake Total 3760 3556 Output Total 9013 0533 Balance -1163 -969 Weight 74.3 kg 73.9 kg General appearance: PRESENT: no acute distress, cooperative Head exam: PRESENT: normocephalic Eye exam: PRESENT: conjunctiva pink, EOMI Mouth exam: PRESENT: moist, neck supple Neck exam: ABSENT: JVD Respiratory exam: PRESENT: clear to auscultation kraig. ABSENT: rhonchi, wheezes Cardiovascular exam: PRESENT: RRR. ABSENT: gallop GI/Abdominal exam: PRESENT: normal bowel sounds, soft. ABSENT: distended, tenderness Extremities exam: ABSENT: pedal edema Neurological exam: PRESENT: alert, awake, oriented to person, oriented to place , oriented to time, oriented to situation Skin exam: PRESENT: dry, warm. ABSENT: cyanosis Results Laboratory Results: 05/07/17 04:13 05/09/17 02:00 05/09/17 05/09/17 02:00 06:22 Sodium 137.6 Potassium 4.1 Chloride 104 Carbon Dioxide 24 Anion Gap 10 BUN 6 L Creatinine 0.74 Est GFR ( Amer) > 60 Est GFR (Non-Af Amer) > 60 Glucose 107 Calcium 9.4 Magnesium 1.8 1.8 05/03/17 05/03/17 05/04/17 22:43 22:43 06:42 Creatine Kinase 469 H 2382 H CK-MB (CK-2) 2.32 Troponin I 0.041 05/04/17 05/04/17 05/04/17 06:42 15:10 15:10 Creatine Kinase 4637 H CK-MB (CK-2) 4.12 4.32 Troponin I 0.089 0.049 05/05/17 05/05/17 05/06/17 01:47 07:30 04:00 Creatine Kinase 6784 H 7319 H CK-MB (CK-2) Troponin I 0.076 05/07/17 05/09/17 04:13 02:00 Creatine Kinase 2512 H CK-MB (CK-2) Troponin I 0.024 Impressions: Head CT 05/03/17 01:53 IMPRESSION: NORMAL BRAIN CT WITHOUT CONTRAST. Chest X-Ray 05/05/17 00:00 IMPRESSION: NO ACUTE RADIOGRAPHIC FINDING IN THE CHEST. Assessment & Plan - Diagnosis (1) DTs (delirium tremens) Is this a current diagnosis for this admission?: Yes (2) Alcohol withdrawal seizure Qualifiers: Complication of substance-induced condition: with delirium Qualified Code(s): F10.231 - Alcohol dependence with withdrawal delirium Is this a current diagnosis for this admission?: Yes (3) Multifocal PVCs Is this a current diagnosis for this admission?: Yes (4) Hypokalemia Is this a current diagnosis for this admission?: Yes (5) Essential hypertension Is this a current diagnosis for this admission?: Yes (6) Alcohol abuse Is this a current diagnosis for this admission?: Yes - Time Time Spent with patient: 25-34 minutes - Plan Summary Plan Summary: Extra dose of magnesium was given to bring magnesium above 2. We will recheck the level in the morning. Potassium level is about 4. In the meantime we will discontinue scheduled Ativan. Discontinue intravenous fluids. Transition to oral supplements with thiamine folic acid and multivitamin. I will increase the patient's beta-papa. Will he will check echocardiogram to determine ejection fraction and any wall motion abnormality. Patient may have underlying cardiomyopathy causing the PVCs and likewise the indeterminate troponin. We will start the patient on aspirin pending testing.
--- NOTE | 2017-05-09 19:29 | XCELERA REPORT ---
[address] [address] Transthoracic Echocardiogram Report Name: LUPE JACKSON Age: 47 yrs Gender: Male : 1970 Patient Status: Inpatient Patient Location: [id number]\S\316\[id number]\A Study Date: 05/09/2017 03:22 PM Height: 72 in Weight: 162 lb BSA: 1.9 m2 Procedure: A two-dimensional transthoracic echocardiogram with color flow and Doppler was performed. Study Quality: Fair. Reason For Study: Cardiomyopathy History: Cardiomyopathy. Ordering Physician: OMERO FLEMING Performed By: Mary Avilez Interpretation Summary There is normal left ventricular wall thickness. LV EF is 50% Left ventricular systolic function is borderline reduced. Doppler measurements suggest normal left ventricular diastolic function There is borderline global hypokinesis of the left ventricle. The right atrium is normal. The left atrial size is normal. The interatrial septum is intact with no evidence for an atrial septal defect. There is no evidence of mitral valve prolapse. There is no mitral valve stenosis. There is a trace to mild amount of mitral regurgitation There is no aortic valve stenosis There is no LVOT obstruction. No aortic regurgitation is present. There is no tricuspid stenosis. There is a trace to mild amount of tricuspid regurgitation There is mild pulmonary hypertension by echo RVSP is 35 mm of Hg , with RA mean of 10. There is no pulmonic valvular regurgitation. There is no pulmonic valvular stenosis. There is no pericardial effusion. MMode/2D Measurements \T\ Calculations RVDd: 3.1 cm LVIDd: 5.4 cm FS: 33.9 % Ao root diam: 3.5 cm IVSd: 1.0 cm LVIDs: 3.6 cm EDV(Teich): 143.6 ml LVPWd: 0.98 cm ESV(Teich): 54.1 ml Ao root area: 9.4 cm2 EF(Teich): 62.3 % LA dimension: 3.9 cm Doppler Measurements \T\ Calculations MV E max jefferson: MV P1/2t max jefferson: Ao V2 max: LV V1 max P.0 cm/sec 55.1 cm/sec 108.6 cm/sec 2.8 mmHg MV A max jefferson: MV P1/2t: 45.3 msec Ao max PG: LV V1 max: 39.3 cm/sec 4.7 mmHg 83.9 cm/sec MV E/A: 1.4 MVA(P1/2t): 4.9 cm2 MV dec slope: 356.6 cm/sec2 MV dec time: 0.15 sec TV V2 max: PA V2 max: 251.0 cm/sec 63.2 cm/sec TV max PG: PA max P.6 mmHg 25.2 mmHg Left Ventricle The left ventricle is normal in size. There is normal left ventricular wall thickness. LV EF is 50%. Left ventricular systolic function is borderline reduced. Doppler measurements suggest normal left ventricular diastolic function. There is borderline global hypokinesis of the left ventricle. There is no thrombus. There is no ventricular septal defect visualized. Right Ventricle The right ventricle is mildly dilated. Atria The right atrium is normal. The left atrial size is normal. The interatrial septum is intact with no evidence for an atrial septal defect. Mitral Valve There is no evidence of mitral valve prolapse. There is no vegetation seen on the mitral valve. There is no mitral valve stenosis. There is a trace to mild amount of mitral regurgitation. Aortic Valve There is no aortic valvular vegetation. There is no aortic valve stenosis. There is no LVOT obstruction. No aortic regurgitation is present. Tricuspid Valve There is no tricuspid stenosis. There is a trace to mild amount of tricuspid regurgitation. There is mild pulmonary hypertension by echo. RVSP is 35 mm of Hg , with RA mean of 10. Pulmonic Valve There is no pulmonic valvular stenosis. There is no pulmonic valvular regurgitation. Great Vessels The aortic root is normal size. Effusions There is no pericardial effusion. : OMERO FLEMING > Mariia Singletary
[2017-05-10 05:29] LABS: MAGNESIUM 1.9 mg/dL (1.6-2.3); POTASSIUM 4.3 mmol/L (3.6-5.0)
[2017-05-10] MEDS: HEPARIN SOD (PORCINE) 5,000 UNIT/ML 1 ML SYRINGE SUBCUT SCH (06:03)
[2017-05-10] MEDS: IPRATROPIUM/ALBUTEROL 0.5-2.5 MG/3 ML AMPUL NEB SCH (08:21)
[2017-05-10] MEDS: CARBAMIDE PEROXIDE 6.5% OTIC SOLN 15 ML AD SCH (10:00)
[2017-05-10] MEDS: NICOTINE 21 MG/24 HR PATCH.TD24 TD SCH (10:16)
[2017-05-10] MEDS: THIAMINE HCL 100 MG TABLET PO SCH (10:17)
[2017-05-10] MEDS: FLUOXETINE HCL 20 MG CAPSULE PO SCH (10:17)
[2017-05-10] MEDS: METOPROLOL TARTRATE 25 MG TABLET PO SCH (10:17)
[2017-05-10] MEDS: FOLIC ACID 1 MG TABLET PO SCH (10:17)
[2017-05-10] MEDS: DOCUSATE SODIUM 100 MG CAPSULE PO SCH (10:17)
[2017-05-10 11:59] VITALS: BP 128/71
--- NOTE | 2017-05-10 13:08 | PDOC DISCHARGE SUMMARY ---
General - Admit/Disc Date/PCP Admission Date/Primary Care Provider: 05/03/17 04:31 Discharge Date: 05/10/17 - Discharge Diagnosis (1) Alcohol withdrawal seizure Is this a current diagnosis for this admission?: Yes (2) DTs (delirium tremens) Is this a current diagnosis for this admission?: Yes (3) Essential hypertension Is this a current diagnosis for this admission?: Yes (4) Hypokalemia Is this a current diagnosis for this admission?: Yes (5) Multifocal PVCs Is this a current diagnosis for this admission?: YesSummary: Echocardiogram was done and showed no structural abnormalities. - Additional Information Resuscitation Status: Full Code Discharge Diet: Regular Discharge Activity: Activity As Tolerated Home Medications: Alprazolam [Xanax 0.5 mg Tablet] 0.5 mg PO Q6HP PRN 05/03/17 Fluoxetine HCl 20 mg PO DAILY 05/03/17 Folic Acid 1 tab PO DAILY 05/03/17 Thiamine HCl [Vitamin B-1] 100 mg PO DAILY 05/03/17 Metoprolol Tartrate [Lopressor 25 mg Tablet] 100 mg PO Q12 #60 tablet 05/10/17 Nicotine [Nicoderm 21 mg/24 Hr Transderm Patch] 1 each TD DAILY patch.td24 02/21 History of Present Illness History of Present Illness: LUPE JACKSON is a 47 year old male history of alcohol abuse who had a witnessed seizure. The patient presented to emergency room and had 2 additional seizures. The patient was felt to have alcohol withdrawal seizures along with delirium tremens. Patient is admitted to the ICU for close monitoring and then Ativan drip. Hospital Course Hospital Course: 47-year-old gentleman who presented with delirium tremens and along with alcohol withdrawal seizure. The patient was very agitated and was admitted to the intensive care unit. Treated with an Ativan drip. The patient slowly had improvement and had resolution of his delirium tremens. Patient had no further seizures once started on Ativan. The patient did have frequent PVCs and echocardiogram was obtained and showed no evidence for any wall motion abnormalities with a normal ejection fraction. Patient had been on metoprolol previously. Metoprolol dose was increased to 100 mg twice daily. Patient had no further evidence for delirium tremens and is felt that he was stable for discharge to home. He is warned about the continued risk of drinking and he is going to try to stop. Physical Exam Vital Signs: Temp Pulse Resp BP Pulse Ox 98.7 F 80 18 128/71 H 96 05/10/17 11:57 05/10/17 11:57 05/10/17 11:57 05/10/17 11:57 05/10/17 11:57 Intake & Output 05/09/17 05/10/17 05/11/17 06:59 06:59 06:59 Intake Total 2806 1176 Output Total 3775 Balance -969 1176 Weight 73.9 kg 71.4 kg General appearance: PRESENT: no acute distress Eye exam: PRESENT: conjunctiva pink. ABSENT: scleral icterus Mouth exam: PRESENT: moist, tongue midline Neck exam: ABSENT: JVD Respiratory exam: PRESENT: clear to auscultation kraig. ABSENT: rales, rhonchi, wheezes Cardiovascular exam: PRESENT: RRR. ABSENT: diastolic murmur, rubs, systolic murmur GI/Abdominal exam: PRESENT: normal bowel sounds, soft. ABSENT: distended, guarding, mass, organolmegaly, rebound, tenderness Extremities exam: ABSENT: calf tenderness, clubbing, pedal edema Neurological exam: PRESENT: alert, awake, oriented to person, oriented to place , oriented to time, oriented to situation, CN II-XII grossly intact. ABSENT: motor sensory deficit Psychiatric exam: PRESENT: appropriate affect Skin exam: PRESENT: dry, intact, warm. ABSENT: cyanosis, rash Results Laboratory Results: 05/07/17 04:13 05/10/17 04:21 05/10/17 04:21 Potassium 4.3 Magnesium 1.9 05/05/17 10:00 Blood Blood Culture - Final NO GROWTH IN 5 DAYS 05/05/17 08:45 Blood Blood Culture - Final NO GROWTH IN 5 DAYS 05/03/17 05/03/17 05/04/17 22:43 22:43 06:42 Creatine Kinase 469 H 2382 H CK-MB (CK-2) 2.32 Troponin I 0.041 05/04/17 05/04/17 05/04/17 06:42 15:10 15:10 Creatine Kinase 4637 H CK-MB (CK-2) 4.12 4.32 Troponin I 0.089 0.049 05/05/17 05/05/17 05/06/17 01:47 07:30 04:00 Creatine Kinase 6784 H 7319 H CK-MB (CK-2) Troponin I 0.076 05/07/17 05/09/17 04:13 02:00 Creatine Kinase 2512 H CK-MB (CK-2) Troponin I 0.024 Impressions: Head CT 05/03/17 01:53 IMPRESSION: NORMAL BRAIN CT WITHOUT CONTRAST. Chest X-Ray 05/05/17 00:00 IMPRESSION: NO ACUTE RADIOGRAPHIC FINDING IN THE CHEST. Qualifiers PATEINT BEING DISCHARGED WITH ANY OF THE FOLLOWING DIAGNOSIS?: No Plan Discharge Plan: Follow up with his primary care doctor in 1-2 weeks. Discharged home in stable condition. Time Spent: Greater than 30 Minutes
== END 2017-05-10 12:48 | disposition home or self-care (01) | DRG 897 ==
LOC: ER 00:01 → EH 04:31 → ICU 08:00 → 3W 05-07 23:30
PROVIDERS: ADMIT Internal Medicine; ATTEND Internal Medicine
DX: F10.231 Alcohol dependence with withdrawal delirium (principal); G40.89 Other seizures; E87.6 Hypokalemia; I10 Essential (primary) hypertension; F17.200 Nicotine dependence, unspecified, uncomplicated; Z79.899 Other long term (current) drug therapy; Z88.8 Allergy status to other drugs, medicaments and biological substances
CPT/HCPCS: 36415; 70450; 71010; 80048; 80053; 80307; 81001; 82550; 82553; 82607; 82803; 82962; 83735; 84100; 84132; 84425; 84443; 84484; 85025; 85027; 87040; 87086; 93005; 93010; 93306; 96374; 96375; 99285; J1644; J1956; J2060; J2270; J3360; J3411; J3475; J3480; J3486; J3490; J7030; J7050; J7620

== ENCOUNTER 2017-07-11 00:45 | Emergency (ER) | payer SELFPAY ==
[2017-07-11] MEDS ORDERED: ASPIRIN 81 MG TABLET, CHEWABLE PO ONE (00:48)
[2017-07-11 01:11] LABS: ABSOLUTE BASOPHILS # (AUTO) 0.1 10^3/uL (0.0-0.2); ABSOLUTE EOSINOPHILS # (AUTO) 0.1 10^3/uL (0.0-0.6); ABSOLUTE LYMPHOCYTES (AUTO) 3.1 10^3/uL (0.5-4.7); ABSOLUTE MONOCYTES (AUTO) 0.8 10^3/uL (0.1-1.4); ABSOLUTE NEUT (AUTO) 2.4 10^3/uL (1.7-8.2); BASOPHILS % (AUTO) 1.3 % (0-2); EOSINOPHILS % (AUTO) 1.1 % (0-6); HEMATOCRIT 39.7 % (37.9-51.0); HEMOGLOBIN 13.8 g/dL (13.5-17.0); HGB HCT DIFFERENCE 1.7; MEAN CORPUSCULAR HEMOGLOBIN 35.8 pg (27.0-33.4); MEAN CORPUSCULAR HGB CONC 34.9 g/dL (32.0-36.0); MEAN CORPUSCULAR VOLUME 103 fl (80-97); MONOCYTES % (AUTO) 12.3 % (3-13); RED BLOOD COUNT 3.87 10^6/uL (4.35-5.55); RED CELL DISTRIBUTION WIDTH 13.1 % (11.5-14.0); SEGMENTED NEUTROPHILS % (AUTO) 37.3 % (42-78); WHITE BLOOD COUNT 6.5 10^3/uL (4.0-10.5)
[2017-07-11 01:15] LABS: ALANINE AMINOTRANSFERASE 36 U/L (21-72); ALBUMIN 4.3 g/dL (3.5-5.0); ALKALINE PHOSPHATASE 116 U/L (38-126); ANION GAP 15 (5-19); ASPARTATE AMINO TRANSFERASE 56 U/L (17-59); BILIRUBIN,DIRECT 0.4 mg/dL (0.0-0.4); BILIRUBIN,TOTAL 0.4 mg/dL (0.2-1.3); BLOOD UREA NITROGEN 10 mg/dL (7-20); CARBON DIOXIDE 24 mmol/L (22-30); CHLORIDE 103 mmol/L (98-107); CREATINE KINASE 210 U/L (55-170); CREATININE RESULT 0.78 mg/dL (0.52-1.25); GLUCOSE 90 mg/dL (75-110); POTASSIUM 4.2 mmol/L (3.6-5.0); SODIUM 141.5 mmol/L (137-145)
[2017-07-11 01:28] LABS: CREATINE KINASE MB 1.72 ng/mL (<4.55); TROPONIN I 0.016 ng/mL
[2017-07-11] MEDS ORDERED: MAG HYDROX/AL HYDROX/SIMETH SUSP 30 ML UDCUP PO ONE (01:33)
[2017-07-11] MEDS ORDERED: METOCLOPRAMIDE HCL ORAL SOLN 10 MG/10 ML UDCUP PO ONE (01:33)
[2017-07-11] MEDS ORDERED: LIDOCAINE 2% VISCOUS SOLN 20 ML UDCUP PO ONE (01:33)
[2017-07-11] MEDS ORDERED: LIDOCAINE 5% (700 MG) TRANSDERMAL ADH..PATCH TP ONE (01:33)
--- NOTE | 2017-07-11 01:43 | RADIOLOGY REPORT (SQ) ---
EXAM DESCRIPTION: CHEST SINGLE VIEW COMPLETED DATE/TIME: 07/11/2017 1:27 am REASON FOR STUDY: cp COMPARISON: Chest x-ray 05/05/2017. EXAM PARAMETERS: NUMBER OF VIEWS: One view. TECHNIQUE: Single frontal radiographic view of the chest acquired. RADIATION DOSE: NA LIMITATIONS: None. FINDINGS: LUNGS AND PLEURA: No consolidation, pneumothorax or pleural effusion. MEDIASTINUM AND HILAR STRUCTURES: No masses. Contour normal. HEART AND VASCULAR STRUCTURES: Heart normal in size. Normal vasculature. BONES: There are healed right-sided rib fractures. HARDWARE: None in the chest. IMPRESSION: No acute radiographic finding the chest. TECHNICAL DOCUMENTATION: JOB ID: [id number]
--- NOTE | 2017-07-11 02:13 | ER Document Report ---
ED General - General Chief Complaint: Chest Pain Stated Complaint: CHEST PAIN Time Seen by Provider: 07/11/17 00:48 Notes: Patient is a 47-year-old male with a past medical history of alcohol dependence and active tobacco abuse who presents with an episode of chest pain that started at 5 PM after he saw blood in his stool. His at the bedside reports that he has had similar episodes of panic with associated chest pain after seeing blood in his stool. He has been having bloody stools for the past 2-3 months and has not yet had this evaluated by GI physician. Nothing is new or different about the bleeding today. He denies that this is the reason for his emergency department visit. The chest pain was resolved by the time of my assessment. States that was present it was a stabbing, pressure-like sensation over the left side of his chest that is worse when he applied pressure. It did not radiate. No associated vomiting, diaphoresis or shortness of breath. He has no history of a DVT or pulmonary embolus. No use of estrogen. He denies any pleuritic pain when it was present. He has no cardiac history. TRAVEL OUTSIDE OF THE [place] IN LAST 30 DAYS: No COUNTRY TRAVELED TO/FROM: [facility] - Related Data Allergies/Adverse Reactions: sulfamethoxazole [From Bactrim] Allergy (Verified 05/03/17 00:11) trimethoprim [From Bactrim] Allergy (Verified 05/03/17 00:11) codeine Adverse Reaction (Verified 05/03/17 00:11) VOMITING, welts Past Medical History - General Information source: Patient - Social History Smoking Status: Current Every Day Smoker Frequency of alcohol use: Heavy Drug Abuse: None Lives with: Spouse/Significant other Family History: Reviewed & Not Pertinent - Past Medical History Cardiac Medical History: Reports: Hx Hypertension Renal/ Medical History: Denies: Hx Peritoneal Dialysis Psychiatric Medical History: Reports: Hx Depression Review of Systems - Review of Systems Notes: Constitutional: Negative for fever. HENT: Negative for sore throat. Eyes: Negative for visual changes. Cardiovascular: Positive for chest pain. Respiratory: Negative for shortness of breath. Gastrointestinal: Negative for abdominal pain, vomiting or diarrhea. Genitourinary: Negative for dysuria. Musculoskeletal: Negative for back pain. Skin: Negative for rash. Neurological: Negative for headaches, weakness or numbness. 10 point ROS negative except as marked above and in HPI. Physical Exam - Vital signs Vitals: Resp Pulse Ox 20 98 07/11/17 00:56 07/11/17 00:56 Interpretation: Normal Notes: PHYSICAL EXAMINATION: GENERAL: Well-appearing, well-nourished and in no acute distress. HEAD: Atraumatic, normocephalic. EYES: Pupils equal round and reactive to light, extraocular movements intact, sclera anicteric, conjunctiva are normal. ENT: nares patent, oropharynx clear without exudates. Moist mucous membranes. NECK: Normal range of motion, supple without lymphadenopathy LUNGS: Breath sounds clear to auscultation bilaterally and equal. No wheezes rales or rhonchi. HEART: Regular rate and rhythm without murmurs ABDOMEN: Soft, nontender, normoactive bowel sounds. No guarding, no rebound. No masses appreciated. EXTREMITIES: Normal range of motion, no pitting or edema. No cyanosis. NEUROLOGICAL: No focal neurological deficits. Moves all extremities spontaneously and on command. PSYCH: Normal mood, normal affect. SKIN: Warm, Dry, normal turgor, no rashes or lesions noted. Course - Re-evaluation Re-evalutation: 07/11/17 02:08 Presentation of chest pain in an otherwise well appearing patient. Low clinical suspicion for ACS given clinical history, exam, EKG without ST elevations or depressions, and negative initial troponin. HEART score less than or equal to 3. PE also seems unlikely given clinical history, absence of tachycardia or dyspnea. Patient is PERC criteria negative. CXR without evidence of pneumothorax or pneumonia. No widened mediastinum. Aortic dissection also seems unlikely given history, symmetric pulses, CXR, and vitals. Patient's pain has been present for greater than 8 hours at time of arrival and serial troponins not indicated. He himself admits that this feels very similar to prior panic attacks that he has had and his at the bedside is repeatedly stating this is identical to a multitude of prior similar events that he has had when he becomes frightened. I did also discuss with the patient his long standing history of intermittent rectal bleeding and the need for a colonoscopy. I have provided him with information for [facility] care programs throughout the state and have instructed him that he needs to get a colonoscopy completed as soon as possible. His hemoglobin here is within normal limits and this is not the reason for his presentation. At this time will discharge with return precautions and follow-up recommendations. Verbal discharge instructions given a the bedside and opportunity for questions given. Medication warnings reviewed. Patient is in agreement with this plan and has verbalized understanding of return precautions and the need for primary care follow-up in the next 24-72 hours. HEART Score: History:0 EC Age:1 Risk Factors:1 Troponin:0 Total: 1 - Vital Signs Vital signs: Temp Pulse Resp BP Pulse Ox 97.3 F 88 20 107/92 H 95 07/11/17 02:49 07/11/17 02:49 07/11/17 02:49 07/11/17 02:49 07/11/17 02:49 - Laboratory Result Diagrams: 07/11/17 00:49 07/11/17 00:49 Laboratory results interpreted by me: 07/11/17 07/11/17 00:49 00:49 RBC 3.87 L MCV 103 H MCH 35.8 H Plt Count 116 L Seg Neutrophils % 37.3 L Lymphocytes % 48.0 H Creatine Kinase 210 H - Diagnostic Test Radiology reviewed: Image reviewed, Reports reviewed Radiology results interpreted by me: 07/11/17 02:21 Chest x-ray: No acute infiltrate or pneumothorax - EKG Interpretation by Me Additional EKG results interpreted by me: 07/11/17 02:21 Normal sinus rhythm. Rate 73. No ST elevations or depressions. QTC is 454 Discharge - Discharge Clinical Impression: Alcohol abuse Chest pain Qualifiers: Chest pain type: unspecified Qualified Code(s): R07.9 - Chest pain, unspecified Condition: Good Disposition: HOME, SELF-CARE Additional Instructions: You were seen today for chest pain. The exact cause of your pain is unclear. However, based on your cardiac enzyme testing, chest x-ray, and EKG it does not appear that it is from an immediately life-threatening cause at this time. Although your testing here is normal is critical that you follow-up with your primary care physician for continued evaluation of this chest pain and possible stress testing. Please return to emergency department immediately if you have worsening of your chest pain, shortness of breath, vomiting, become unable to exert yourself due to pain or difficulty breathing, you pass out, or have any pain that radiates into your arms, jaw, or back. Please also return if you have any additional symptoms that are concerning to you. Referrals: ANSELMO GUAMAN MD [Primary Care Provider] - Follow up as needed
[2017-07-11 02:51] VITALS: BP 107/92
--- NOTE | 2017-07-11 09:13 | EKG REPORT ---
SEVERITY:- OTHERWISE NORMAL ECG - SINUS RHYTHM LOW VOLTAGE IN FRONTAL LEADS : Confirmed by: Edmund Ta MD 11-Jul-2017 09:13:27
== END 2017-07-11 02:44 | disposition home or self-care (01) ==
LOC: ER 00:45
DX: R07.89 Other chest pain (principal); F10.20 Alcohol dependence, uncomplicated; K92.1 Melena; I10 Essential (primary) hypertension; F17.200 Nicotine dependence, unspecified, uncomplicated; Z88.1 Allergy status to other antibiotic agents
CPT/HCPCS: 93005; 99285; 36415; 82553; 82550; 85025; 80053; 84484; 71010; 93010; J3490

== ENCOUNTER 2018-06-07 11:24 | Emergency (ER) | payer SELFPAY ==
[2018-06-07 11:30] VITALS: BP 124/89
--- NOTE | 2018-06-07 11:35 | ER Document Report ---
HPI - HPI Patient complains to provider of: Right knee pain Onset: Yesterday Onset/Duration: Sudden Pain Level: 5 Context: 48-year-old male slipped and fell injuring his right knee. He is not sure if it was a twisting injury but he knows he did not land on the knee. This injury. No back pain. Associated Symptoms: None Exacerbated by: Movement, Walking Relieved by: Denies Similar symptoms previously: No Recently seen / treated by doctor: No - ROS ROS below otherwise negative: Yes Systems Reviewed and Negative: Yes All other systems reviewed and negative - REPRODUCTIVE Reproductive: DENIES: : Past Medical History - General Information source: Patient - Social History Smoking Status: Unknown if Ever Smoked Frequency of alcohol use: None Drug Abuse: None Lives with: Family Family History: Reviewed & Not Pertinent - Past Medical History Cardiac Medical History: Reports: Hx Hypertension Renal/ Medical History: Denies: Hx Peritoneal Dialysis Psychiatric Medical History: Reports: Hx Depression Surgical Hx: Negative Vertical Provider Document - CONSTITUTIONAL Agree With Documented VS: Yes Exam Limitations: No Limitations - INFECTION CONTROL TRAVEL OUTSIDE OF THE [place] IN LAST 30 DAYS: No COUNTRY TRAVELED TO/FROM: [facility] - MUSCULOSKELETAL/EXTREMETIES Musculoskeletal/Extremeties: MAEW, FROM, Tender - Lateral aspect of the right knee there is no edema or erythema. No effusion - NEURO Level of Consciousness: Alert Motor/Sensory: No Motor Deficit, No Sensory Deficit Course - Vital Signs Vital signs: Temp Pulse Resp BP Pulse Ox 98.5 F 84 14 124/89 H 95 06/07/18 11:28 06/07/18 11:28 06/07/18 11:28 06/07/18 11:28 06/07/18 11:28 Procedures - Immobilization Right Knee Time completed: 12:50 Pre-Proc Neuro Vasc Exam: Normal Immobilizer type: Crutches, Knee immobilizer Performed by: PCT Post-Proc Neuro Vasc Exam: Normal Alignment checked and good: Yes Discharge - Discharge Clinical Impression: Right knee sprain Condition: Good Disposition: HOME, SELF-CARE Instructions: Acetaminophen, Use of Crutches ([facility]), Ibuprofen (General) ([facility]), Knee Immobilizing Splint ([facility]), Sprained Knee ([facility]) Additional Instructions: Knee immobilizer for comfort Crutches this week Elevate today Tylenol up to 4000 mg per day for pain Motrin for inflammation See orthopedic doctor for follow-up Copy of negative imaging report given to you Return to the emergency room for any concerns Prescriptions: Ibuprofen [Motrin 800 mg Tablet] 800 mg PO Q8HP PRN #30 tab PRN Reason: Forms: Return to Work Referrals: VERO PERLA MD [ACTIVE STAFF] - Follow up as needed
--- NOTE | 2018-06-07 12:09 | RADIOLOGY REPORT (SQ) ---
EXAM DESCRIPTION: KNEE RIGHT 4 VIEWS COMPLETED DATE/TIME: 06/07/2018 11:55 am REASON FOR STUDY: injury last night COMPARISON: None. NUMBER OF VIEWS: Four views. TECHNIQUE: AP, lateral, and both oblique radiographic images acquired of the right knee. LIMITATIONS: None. FINDINGS: MINERALIZATION: Normal. BONES: No acute fracture or dislocation. No worrisome bone lesions. JOINT: Joint spaces maintained. There is likely joint fluid. SOFT TISSUES: No soft tissue swelling. No radio-opaque foreign body. OTHER: No other significant finding. IMPRESSION: No acute fractures. Likely joint fluid. TECHNICAL DOCUMENTATION: JOB ID: [id number] [facility]- All Rights Reserved Reading location - IP/workstation name: [email or web address]
== END 2018-06-07 12:30 | disposition home or self-care (01) ==
LOC: ER 11:24
DX: S83.91XA Sprain of unspecified site of right knee, initial encounter (principal); W01.0XXA Fall on same level from slipping, tripping and stumbling without subsequent striking against object, initial encounter; I10 Essential (primary) hypertension
CPT/HCPCS: 99283; 73564; L1830

== ENCOUNTER 2018-07-23 16:04 | Emergency (ER) | payer SELFPAY ==
[2018-07-23] MEDS ORDERED: LORAZEPAM 1 MG TABLET PO ONE (17:35)
--- NOTE | 2018-07-23 17:38 | ER Document Report ---
ED Medical Screen (RME) - General Chief Complaint: Probable Seizure Stated Complaint: POSSIBLE SEIZURE Time Seen by Provider: 07/23/18 17:27 Notes: 48-year-old male to emergency department chief complaint of seizure. States he had a seizure last night. Had another seizure this morning. Bit his tongue. Fell backwards and hit his head. Having some pain in his head and pain in his tongue. Feels a little agitated and nervous. Denies any other major symptoms at this time. Not on any seizure medications. States he is a heavy drinker but only on the weekends. I have greeted and performed a rapid initial assessment of this patient. A comprehensive ED assessment and evaluation of the patient, analysis of test results and completion of the medical decision making process will be conducted by additional ED providers. TRAVEL OUTSIDE OF THE [place] IN LAST 30 DAYS: No COUNTRY TRAVELED TO/FROM: [facility] - Related Data Allergies/Adverse Reactions: sulfamethoxazole [From Bactrim] Allergy (Verified 05/03/17 00:11) trimethoprim [From Bactrim] Allergy (Verified 05/03/17 00:11) codeine Adverse Reaction (Verified 05/03/17 00:11) VOMITING, welts Past Medical History - Social History Chew tobacco use (# tins/day): No Frequency of alcohol use: Social Drug Abuse: None - Past Medical History Cardiac Medical History: Reports: Hx Hypertension Renal/ Medical History: Denies: Hx Peritoneal Dialysis Psychiatric Medical History: Reports: Hx Depression Past Surgical History: Reports: Hx Orthopedic Surgery - left knee Review of Systems - Review of Systems Notes: Systems positive for the following: Seizure, tongue pain, head pain, headache Physical Exam - Vital signs Vitals: Temp Pulse Resp BP Pulse Ox 98.5 F 106 H 16 146/96 H 97 07/23/18 16:17 07/23/18 16:17 07/23/18 16:17 07/23/18 16:17 07/23/18 16:17 - HEENT Head: Normocephalic, Other - Small contusion on the right occipital scalp Eyes: Normal Pupils: PERRL Notes: The tongue has bite laceration/abrasion bilaterally. Nonsuturable - Respiratory Respiratory status: No respiratory distress Chest status: Nontender Breath sounds: Normal Chest palpation: Normal - Cardiovascular Rhythm: Regular Heart sounds: Normal auscultation Murmur: No - Neurological Neuro grossly intact: Yes Cognition: Normal Orientation: AAOx4 [place] Coma Scale Eye Opening: Spontaneous [place] Coma Scale Verbal: Oriented [place] Coma Scale Motor: Obeys Commands [place] Coma Scale Total: 15 Speech: Normal Motor strength normal: LUE, RUE, LLE, RLE Sensory: Normal Course - Vital Signs Vital signs: Temp Pulse Resp BP Pulse Ox 98.5 F 106 H 16 146/96 H 97 07/23/18 16:17 07/23/18 16:17 07/23/18 16:17 07/23/18 16:17 07/23/18 16:17 Doctor's Discharge - Discharge Referrals: ANSELMO GUAMAN MD [Primary Care Provider] - Follow up as needed
--- NOTE | 2018-07-23 18:19 | RADIOLOGY REPORT (SQ) ---
EXAM DESCRIPTION: CT HEAD WITHOUT COMPLETED DATE/TIME: 07/23/2018 6:06 pm REASON FOR STUDY: seizure, fall, hit head COMPARISON: CT brain 05/03/2017, 12/30/2016. TECHNIQUE: Axial images acquired through the brain without intravenous contrast. Images reviewed wi th bone, brain and subdural windows. Images stored on PACS. All CT scanners at this facility use dose modulation, iterative reconstruction, and/or weight based d osing when appropriate to reduce radiation dose to as low as reasonably achievable (ALARA). [facility]: Dose Right [facility]: CareDose [facility]: Dose Right [facility]: Teradose 4D [facility]: Smart Mediasurface RADIATION DOSE: CT Rad equipment meets quality standard of care and radiation dose reduction techniq ues were employed. CTDIvol: 53.2 mGy. DLP: 991 mGy-cm. mGy. LIMITATIONS: None. FINDINGS: VENTRICLES: Normal size and contour. CEREBRUM: No mass effect. No hemorrhage. No midline shift. Normal castaneda/white matter differentiatio n. No evidence for acute territorial infarction. CEREBELLUM: No mass effect. No hemorrhage. No alteration of density. No evidence for acute infarct ion. EXTRAAXIAL SPACES: No fluid collections. ORBITS AND GLOBE: Symmetrical contour of the globes. CALVARIUM: No depressed skull fracture. PARANASAL SINUSES: Mild mucosal thickening at the bilateral maxillary sinuses. SOFT TISSUES: No hematoma. IMPRESSION: NO ACUTE INTRACRANIAL IMAGING FINDINGS. EVIDENCE OF ACUTE STROKE: NO. COMMENT: Quality ID # [id number]: Final reports with documentation of one or more dose reduction techniques (e.g., Automated exposure control, adjustment of the mA and/or kV according to patient size, use of iterative reconstruction technique) TECHNICAL DOCUMENTATION: JOB ID: [id number] 2010 [employer]- All Rights Reserved Reading location - IP/workstation name: [email or web address]
[2018-07-23 18:59] LABS: ABSOLUTE BASOPHILS # (AUTO) 0.1 10^3/uL (0.0-0.2); ABSOLUTE LYMPHOCYTES (AUTO) 0.8 10^3/uL (0.5-4.7); ABSOLUTE MONOCYTES (AUTO) 0.9 10^3/uL (0.1-1.4); ABSOLUTE NEUT (AUTO) 7.4 10^3/uL (1.7-8.2); BASOPHILS % (AUTO) 0.9 % (0-2); EOSINOPHILS % (AUTO) 0.1 % (0-6); HEMATOCRIT 44.3 % (37.9-51.0); HEMOGLOBIN 15.2 g/dL (13.5-17.0); LYMPHOCYTES % (AUTO) 8.5 % (13-45); MEAN CORPUSCULAR HEMOGLOBIN 34.9 pg (27.0-33.4); MEAN CORPUSCULAR HGB CONC 34.4 g/dL (32.0-36.0); MEAN CORPUSCULAR VOLUME 101 fl (80-97); RED BLOOD COUNT 4.37 10^6/uL (4.35-5.55); RED CELL DISTRIBUTION WIDTH 13.1 % (11.5-14.0); SEGMENTED NEUTROPHILS % (AUTO) 80.5 % (42-78); TOTAL CELLS COUNTED % (AUTO) 100 %; WHITE BLOOD COUNT 9.2 10^3/uL (4.0-10.5)
[2018-07-23 19:19] LABS: PLATELET COUNT 94 10^3/uL (150-450)
[2018-07-23 19:20] LABS: ALANINE AMINOTRANSFERASE 68 U/L (21-72); ALBUMIN 4.6 g/dL (3.5-5.0); ALKALINE PHOSPHATASE 84 U/L (38-126); ANION GAP 9 (5-19); ASPARTATE AMINO TRANSFERASE 87 U/L (17-59); BILIRUBIN,DIRECT 0.7 mg/dL (0.0-0.4); BLOOD UREA NITROGEN 7 mg/dL (7-20); CALCIUM 9.9 mg/dL (8.4-10.2); CARBON DIOXIDE 26 mmol/L (22-30); CHLORIDE 102 mmol/L (98-107); CREATINE KINASE 1114 U/L (55-170); GLUCOSE 102 mg/dL (75-110); POTASSIUM 4.1 mmol/L (3.6-5.0); TOTAL PROTEIN 7.8 g/dL (6.3-8.2)
[2018-07-23 19:26] LABS: ALCOHOL < 10 mg/dL (NONE DETECTED)
[2018-07-24] MEDS ORDERED: DIAZEPAM 5 MG TABLET PO ONE (00:50)
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
[2018-07-24 01:54] VITALS: BP 140/89
== END 2018-07-24 01:45 | disposition home or self-care (01) ==
LOC: ER 16:04
DX: F10.230 Alcohol dependence with withdrawal, uncomplicated (principal); R56.9 Unspecified convulsions; F10.29 Alcohol dependence with unspecified alcohol-induced disorder; I10 Essential (primary) hypertension; F32.9 Major depressive disorder, single episode, unspecified; Z88.1 Allergy status to other antibiotic agents; Z88.5 Allergy status to narcotic agent
CPT/HCPCS: 36415; 70450; 80053; 80307; 82550; 85025; 99284

== ENCOUNTER 2019-03-11 21:52 | Emergency (ER) | payer SELFPAY ==
--- NOTE | 2019-03-11 22:37 | ER Document Report ---
ED General - General Chief Complaint: Chest Pain Stated Complaint: DIZZY,SHAKING,HEART RACING Time Seen by Provider: 03/11/19 22:13 Primary Care Provider: TINY SOSA MD [ACTIVE STAFF] - Follow up in 3-5 days ANSELMO GUAMAN MD [Primary Care Provider] - Follow up as needed ENDY HILARIO MD [ACTIVE STAFF] - Follow up as needed TRAVEL OUTSIDE OF THE [place] IN LAST 30 DAYS: No COUNTRY TRAVELED TO/FROM: [facility] Notes: Patient is a 48-year-old male that presents to the emergency department for chief complaint of chest pain. Patient states about 2 hours prior to arrival he had a sharp pain on the left side of his chest that radiated into his left shoulder. He reported associated nausea, diaphoresis and shortness of breath. The pain lasted for about an hour until he took a Xanax. He states he felt very anxious during the pain. He currently states the pain has completely resolved. He denied any aggravating or relieving factors. He believes he had a normal cardiac stress test a few years ago and denies history of cardiac disease in the past. He is still drinking alcohol daily. Patient's family member states that he has been drinking more heavily over the last 4 days and has had at least 24 beers a day. Patient does have a history of withdrawal seizures in the past. Past Medical History: Alcohol abuse, hypertension Past Surgical History: Reviewed in chart Social History: Daily alcohol. Daily tobacco. Denies drug use Family History: Reviewed and noncontributory for presenting illness Allergies: Reviewed, see documented allergy list. REVIEW OF SYSTEMS: CONSTITUTIONAL : No fever No chills diaphoresis No recent illness EENT: No vision changes No congestion No sore throat CARDIOVASCULAR: chest pain No palpitations RESPIRATORY: shortness of breath No cough No difficulty breathing GASTROINTESTINAL: No abdominal pain nausea No vomiting No diarrhea GENITOURINARY: No dysuria No hematuria No difficulty urinating MUSCULOSKELETAL: No back pain No leg pain No arm pain SKIN: No rashes No lesions LYMPHATIC: No swollen, enlarged glands. NEUROLOGICAL: No lightheadedness No headache No weakness No paresthesias PSYCHIATRIC: No anxiety No depression PHYSICAL EXAMINATION: Vital signs reviewed, nursing noted reviewed. GENERAL: Appears intoxicated, well-nourished and in no acute distress. HEAD: Atraumatic, normocephalic. EYES: Eyes appear normal, extraocular movements intact, sclera anicteric, conjunctiva are normal. ENT: nares patent, oropharynx clear without exudates. Moist mucous membranes. bilateral cerumen impaction NECK: Normal range of motion, supple without lymphadenopathy LUNGS: Breath sounds clear to auscultation bilaterally and equal. No wheezes rales or rhonchi. HEART: Regular rate and rhythm without murmurs ABDOMEN: Soft, nontender, normoactive bowel sounds. No rebound, guarding, or rigidity. No masses appreciated. EXTREMITIES: Nontender, good range of motion, no pitting or edema. NEUROLOGICAL: No focal neurological deficits. Moves all extremities spontaneously Motor and sensory grossly intact on exam. PSYCH: Normal mood, normal affect. SKIN: Warm, Dry, normal turgor, no rashes or lesions noted on exposed skin - Related Data Allergies/Adverse Reactions: sulfamethoxazole [From Bactrim] Allergy (Verified 05/03/17 00:11) trimethoprim [From Bactrim] Allergy (Verified 05/03/17 00:11) codeine Adverse Reaction (Verified 05/03/17 00:11) VOMITING, welts Past Medical History - Social History Smoking Status: Current Every Day Smoker Family History: Reviewed & Not Pertinent - Past Medical History Cardiac Medical History: Reports: Hx Hypertension Renal/ Medical History: Denies: Hx Peritoneal Dialysis Psychiatric Medical History: Reports: Hx Depression Past Surgical History: Reports: Hx Orthopedic Surgery - left knee Physical Exam - Vital signs Vitals: Temp Pulse Resp BP Pulse Ox 97.7 F 71 16 137/99 H 97 03/11/19 21:53 03/11/19 21:53 03/11/19 21:53 03/11/19 21:53 03/11/19 21:53 Course - Re-evaluation Re-evalutation: 03/12/19 00:04 Vitals reviewed. Nursing notes reviewed. Patient was asymptomatic at presentation. I just reevaluated him and he has not had any recurrence of his chest pain. His initial troponin is negative. EKG shows no acute ischemic changes. He does have elevated liver enzymes and blood alcohol level consistent with his chronic alcoholism. Patient appeared baffled when I told him his blood alcohol level and states that he has not been drinking much and that must be an error. His does endorse that he has been drinking heavily. Patient's lab work also shows thrombocytopenia which is at his baseline. Patient received IV fluids, thiamine, folate and aspirin while in the ED. His chest x-ray is also unremarkable. Patients heart score is 2. Plan to delta his troponin and reevaluate. Patient also requested I evaluate his ears, he has bilateral cerumen impactions which she has had in the past. He was counseled on using Debrox and will be referred to ENT for follow-up. Laboratory 03/11/19 03/11/19 03/11/19 22:20 22:20 22:20 WBC 5.3 RBC 4.41 Hgb 15.0 Hct 44.6 MCV 101 H MCH 34.0 H MCHC 33.6 RDW 14.0 Plt Count 103 L Seg Neutrophils % 34.8 L Lymphocytes % 47.4 H Monocytes % 13.2 H Eosinophils % 3.2 Basophils % 1.4 Absolute Neutrophils 1.8 Absolute Lymphocytes 2.5 Absolute Monocytes 0.7 Absolute Eosinophils 0.2 Absolute Basophils 0.1 Sodium 143.5 Potassium 3.9 Chloride 106 Carbon Dioxide 24 Anion Gap 14 BUN 6 L Creatinine 0.73 Est GFR ( Amer) > 60 Est GFR (Non-Af Amer) > 60 Glucose 102 Calcium 9.5 Total Bilirubin 0.4 Direct Bilirubin 0.4 Neonat Total Bilirubin Not Reportable Neonat Direct Bilirubin Not Reportable Neonat Indirect Bili Not Reportable AST 103 H ALT 78 H Alkaline Phosphatase 109 Troponin I Total Protein 8.1 Albumin 4.6 Urine Opiates Screen Urine Methadone Screen Ur Barbiturates Screen Ur Phencyclidine Scrn Ur Amphetamines Screen U Benzodiazepines Scrn Urine Cocaine Screen U Marijuana (THC) Screen Serum Alcohol 336 H* 03/11/19 03/12/19 03/12/19 22:20 00:48 02:00 WBC RBC Hgb Hct MCV MCH MCHC RDW Plt Count Seg Neutrophils % Lymphocytes % Monocytes % Eosinophils % Basophils % Absolute Neutrophils Absolute Lymphocytes Absolute Monocytes Absolute Eosinophils Absolute Basophils Sodium Potassium Chloride Carbon Dioxide Anion Gap BUN Creatinine Est GFR ( Amer) Est GFR (Non-Af Amer) Glucose Calcium Total Bilirubin Direct Bilirubin Neonat Total Bilirubin Neonat Direct Bilirubin Neonat Indirect Bili AST ALT Alkaline Phosphatase Troponin I < 0.012 < 0.012 Total Protein Albumin Urine Opiates Screen NEGATIVE Urine Methadone Screen NEGATIVE Ur Barbiturates Screen NEGATIVE Ur Phencyclidine Scrn NEGATIVE Ur Amphetamines Screen NEGATIVE U Benzodiazepines Scrn NEGATIVE Urine Cocaine Screen NEGATIVE U Marijuana (THC) Screen NEGATIVE Serum Alcohol Chest X-Ray 03/11/19 22:51 IMPRESSION: No acute findings. No focal lung consolidation. 03/12/19 02:41 Patient has remained chest pain-free. His delta troponin is also negative. He is speaking in full sentences and able to ambulate without difficulty. He will be referred to cardiology for follow-up. He was told to return for new or worsening symptoms. He was counseled on decreasing his alcohol intake. He is stable for discharge - Vital Signs Vital signs: Temp Pulse Resp BP Pulse Ox 98 F 71 21 H 127/89 H 93 03/12/19 02:01 03/11/19 21:53 03/12/19 02:01 03/12/19 02:01 03/12/19 02:01 - Laboratory Result Diagrams: 03/11/19 22:20 03/11/19 22:20 Laboratory results interpreted by me: 03/11/19 03/11/19 03/11/19 22:20 22:20 22:20 MCV 101 H MCH 34.0 H Plt Count 103 L Seg Neutrophils % 34.8 L Lymphocytes % 47.4 H Monocytes % 13.2 H BUN 6 L AST 103 H ALT 78 H Serum Alcohol 336 H* - EKG Interpretation by Me Additional EKG results interpreted by me: 03/11/19 22:36 Interpreted by myself 2200: Normal sinus rhythm, rate 72, normal axis, no ectopy, first-degree AV block Discharge - Discharge Clinical Impression: Impacted cerumen, bilateral Chest pain Qualifiers: Chest pain type: unspecified Qualified Code(s): R07.9 - Chest pain, unspecified Alcohol intoxication Qualifiers: Complication of substance-induced condition: uncomplicated Qualified Code(s): F10.920 - Alcohol use, unspecified with intoxication, uncomplicated Condition: Stable Disposition: HOME, SELF-CARE Instructions: Cerumen Impaction ([facility]), Chest Pain of Unclear Cause ([facility]) Additional Instructions: Please return to the emergency department if you have any worsening, or concern of your symptoms. Please return to the emergency department if you develop chest pain, difficulty breathing, severe abdominal pain, or ongoing vomiting. Please follow-up with your primary care physician in 2-3 days and any other recommended physicians. If prescribed, take all medications as directed. If you have any questions or concerns do not hesitate to return the emergency department for evaluation. Follow-up with Dr. Hilario, ENT, for further treatment of your bilateral earwax impaction as needed. You can use over the counter Debrox as well. Follow-up with Dr. Sosa for outpatient stress test to further evaluate your chest pain Referrals: ANSELMO GUAMAN MD [Primary Care Provider] - Follow up as needed ENDY HILARIO MD [ACTIVE STAFF] - Follow up as needed TINY SOSA MD [ACTIVE STAFF] - Follow up in 3-5 days
[2019-03-11] MEDS ORDERED: THIAMINE HCL 100 MG, FOLIC ACID 1 MG in NORMAL SALINE 250 ML IV ONE (22:52)
[2019-03-11 22:57] LABS: ABSOLUTE BASOPHILS # (AUTO) 0.1 10^3/uL (0.0-0.2); ABSOLUTE EOSINOPHILS # (AUTO) 0.2 10^3/uL (0.0-0.6); ABSOLUTE LYMPHOCYTES (AUTO) 2.5 10^3/uL (0.5-4.7); ABSOLUTE MONOCYTES (AUTO) 0.7 10^3/uL (0.1-1.4); ABSOLUTE NEUT (AUTO) 1.8 10^3/uL (1.7-8.2); BASOPHILS % (AUTO) 1.4 % (0-2); EOSINOPHILS % (AUTO) 3.2 % (0-6); HEMATOCRIT 44.6 % (37.9-51.0); LYMPHOCYTES % (AUTO) 47.4 % (13-45); MEAN CORPUSCULAR HGB CONC 33.6 g/dL (32.0-36.0); MEAN CORPUSCULAR VOLUME 101 fl (80-97); MONOCYTES % (AUTO) 13.2 % (3-13); PLATELET COUNT 103 10^3/uL (150-450); RED BLOOD COUNT 4.41 10^6/uL (4.35-5.55); SEGMENTED NEUTROPHILS % (AUTO) 34.8 % (42-78); TOTAL CELLS COUNTED % (AUTO) 100 %; WHITE BLOOD COUNT 5.3 10^3/uL (4.0-10.5)
[2019-03-11] MEDS ORDERED: ASPIRIN 81 MG TABLET, CHEWABLE PO ONE (23:00)
--- NOTE | 2019-03-11 23:09 | EKG REPORT ---
SEVERITY:- ABNORMAL ECG - SINUS RHYTHM LOW VOLTAGE IN FRONTAL LEADS : Confirmed by: Mayi Sosa 11-Mar-2019 23:08:17
[2019-03-11 23:23] LABS: ALANINE AMINOTRANSFERASE 78 U/L (21-72); ALBUMIN 4.6 g/dL (3.5-5.0); ALKALINE PHOSPHATASE 109 U/L (38-126); ANION GAP 14 (5-19); ASPARTATE AMINO TRANSFERASE 103 U/L (17-59); BILIRUBIN,DIRECT 0.4 mg/dL (0.0-0.4); BILIRUBIN,TOTAL 0.4 mg/dL (0.2-1.3); BLOOD UREA NITROGEN 6 mg/dL (7-20); CALCIUM 9.5 mg/dL (8.4-10.2); CARBON DIOXIDE 24 mmol/L (22-30); CHLORIDE 106 mmol/L (98-107); GLUCOSE 102 mg/dL (75-110); POTASSIUM 3.9 mmol/L (3.6-5.0); SODIUM 143.5 mmol/L (137-145); TOTAL PROTEIN 8.1 g/dL (6.3-8.2)
[2019-03-11] MEDS ORDERED: THIAMINE HCL INJ 200 MG/2 ML VIAL ONE (23:42)
[2019-03-11] MEDS ORDERED: FOLIC ACID INJ 5 MG/1 ML 10 ML VIAL ONE (23:44)
--- NOTE | 2019-03-12 00:18 | RADIOLOGY REPORT (SQ) ---
EXAM DESCRIPTION: XR CHEST 1 VIEW COMPLETED DATE/TME: 03/11/2019 22:51 CLINICAL HISTORY: 48 years, Male, chest pain Comparison: None FINDINGS: No focal lung consolidation. No pleural effusion. No pneumothorax. Cardiac and mediastinal silhouette is unremarkable. No acute osseous abnormality. Soft tissues are unremarkable. IMPRESSION: No acute findings. No focal lung consolidation.
[2019-03-12] MEDS: RINGERS SOLUTION,LACTATED 1,000 ML IV PRN ×2 (00:26→01:28)
[2019-03-12 01:20] LABS: URINE AMPHETAMINES SCREEN NEGATIVE; URINE BARBITURATES SCREEN NEGATIVE; URINE BENZODIAZEPINES SCREEN NEGATIVE; URINE COCAINE SCREEN NEGATIVE; URINE MARIJUANA (THC) SCREEN NEGATIVE; URINE METHADONE SCREEN NEGATIVE; URINE PHENCYCLIDINE SCREEN NEGATIVE
[2019-03-12 02:41] VITALS: BP 127/89
== END 2019-03-12 02:50 | disposition home or self-care (01) ==
LOC: ER 21:52
DX: H61.23 Impacted cerumen, bilateral (principal); R07.9 Chest pain, unspecified; F10.920 Alcohol use, unspecified with intoxication, uncomplicated; R42 Dizziness and giddiness; M25.512 Pain in left shoulder; R11.0 Nausea; R61 Generalized hyperhidrosis; R06.02 Shortness of breath; F41.9 Anxiety disorder, unspecified; F17.200 Nicotine dependence, unspecified, uncomplicated; I10 Essential (primary) hypertension
CPT/HCPCS: 93005; 99285; 96361; 96365; 36415; 80307 ×2; 85025; 80053; 84484; 71045; 93010; J3490; J3411; J7050; J7120

== ENCOUNTER → 2019-04-23 | Outpatient (CLI) | payer OTHER ==
[2019-04-23 08:52] LABS: ABSOLUTE BASOPHILS # (AUTO) 0.1 10^3/uL (0.0-0.2); ABSOLUTE EOSINOPHILS # (AUTO) 0.1 10^3/uL (0.0-0.6); ABSOLUTE LYMPHOCYTES (AUTO) 1.8 10^3/uL (0.5-4.7); ABSOLUTE MONOCYTES (AUTO) 0.6 10^3/uL (0.1-1.4); ABSOLUTE NEUT (AUTO) 1.6 10^3/uL (1.7-8.2); BASOPHILS % (AUTO) 1.9 % (0-2); HEMATOCRIT 45.3 % (37.9-51.0); HEMOGLOBIN 15.2 g/dL (13.5-17.0); LYMPHOCYTES % (AUTO) 42.9 % (13-45); MEAN CORPUSCULAR HEMOGLOBIN 34.5 pg (27.0-33.4); MEAN CORPUSCULAR HGB CONC 33.6 g/dL (32.0-36.0); MEAN CORPUSCULAR VOLUME 103 fl (80-97); MONOCYTES % (AUTO) 13.5 % (3-13); PLATELET COUNT 102 10^3/uL (150-450); RED BLOOD COUNT 4.42 10^6/uL (4.35-5.55); SEGMENTED NEUTROPHILS % (AUTO) 38.7 % (42-78); TOTAL CELLS COUNTED % (AUTO) 100 %; WHITE BLOOD COUNT 4.1 10^3/uL (4.0-10.5)
[2019-04-23 10:01] LABS: ALANINE AMINOTRANSFERASE 138 U/L (21-72); ALBUMIN 4.7 g/dL (3.5-5.0); ALKALINE PHOSPHATASE 106 U/L (38-126); ANION GAP 11 (5-19); ASPARTATE AMINO TRANSFERASE 250 U/L (17-59); BILIRUBIN,DIRECT 0.4 mg/dL (0.0-0.4); BILIRUBIN,TOTAL 0.5 mg/dL (0.2-1.3); BLOOD UREA NITROGEN 6 mg/dL (7-20); CALCIUM 9.9 mg/dL (8.4-10.2); CARBON DIOXIDE 29 mmol/L (22-30); CHLORIDE 105 mmol/L (98-107); CHOLESTEROL 242.89 mg/dL (0-200); GLUCOSE 83 mg/dL (75-110); POTASSIUM 5.1 mmol/L (3.6-5.0); SODIUM 144.7 mmol/L (137-145); TOTAL PROTEIN 7.9 g/dL (6.3-8.2); TRIGLYCERIDES 73 mg/dL (<150)
[2019-04-23 10:12] LABS: DIRECT LDL 103 mg/dL (<100)
== END ==
LOC: CCC 07:59
DX: Z00.00 Encounter for general adult medical examination without abnormal findings (principal)
CPT/HCPCS: 36415; 80053; 80061; 83036; 84443; 85025

== ENCOUNTER 2019-06-06 17:41 | Emergency (ER) | payer SELFPAY ==
[2019-06-06 17:52] VITALS: BP 133/90
[2019-06-06] MEDS ORDERED: LIDOCAINE 1% INJ-PF (10 MG/ML) 30 ML SDV INJ ONE (18:11)
[2019-06-06] MEDS ORDERED: DIPH/PERTUSS(ACELL)/TETANUS VAC/PF 0.5 ML SYR (>=10YO) IM ONE (18:12)
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
== END 2019-06-06 19:24 | disposition home or self-care (01) ==
LOC: ER 17:41
DX: S66.821A Laceration of other specified muscles, fascia and tendons at wrist and hand level, right hand, initial encounter (principal); S61.411A Laceration without foreign body of right hand, initial encounter; W45.8XXA Other foreign body or object entering through skin, initial encounter; Y93.89 Activity, other specified; I10 Essential (primary) hypertension; F17.200 Nicotine dependence, unspecified, uncomplicated
CPT/HCPCS: 90471; 90715; 99282

== ENCOUNTER 2019-06-13 14:10 | Emergency (ER) | payer SELFPAY ==
[2019-06-13 14:16] VITALS: BP 122/88
--- NOTE | 2019-06-13 14:37 | ER Document Report ---
HPI - HPI Time Seen by Provider: 06/13/19 14:21 Pain Level: Denies Notes: Patient is a 49-year-old male who presents for suture removal status post placement 1 week ago to his right dorsal hand. Patient has not noticed any discharge, redness, or wound separation. He has no other concerns or complaints. Denies any headache, fever, URI, sore throat, chest pain, palpitations, syncope, cough, shortness of breath, wheeze, dyspnea, abdominal pain, nausea/vomiting/diarrhea, urinary retention, dysuria, hematuria, numbness/tingling, muscle paralysis/weakness, or rash. - ROS Systems Reviewed and Negative: Yes All other systems reviewed and negative - CONSTITUTIONAL Constitutional: DENIES: Fever, Chills - REPRODUCTIVE Reproductive: DENIES: : Past Medical History - Social History Smoking Status: Current Every Day Smoker Frequency of alcohol use: None Drug Abuse: None Family History: Reviewed & Not Pertinent Patient has suicidal ideation: No Patient has homicidal ideation: No - Past Medical History Cardiac Medical History: Reports: Hx Hypercholesterolemia, Hx Hypertension Renal/ Medical History: Denies: Hx Peritoneal Dialysis Psychiatric Medical History: Reports: Hx Depression Past Surgical History: Reports: Hx Orthopedic Surgery - L knee fracture, Hx Tonsillectomy Vertical Provider Document - CONSTITUTIONAL Agree With Documented VS: Yes Notes: PHYSICAL EXAMINATION: GENERAL: Well-appearing, well-nourished and in no acute distress. HEAD: Atraumatic, normocephalic. NECK: Normal range of motion, supple without lymphadenopathy. No midline tenderness. LUNGS: Breath sounds clear to auscultation bilaterally and equal. No wheezes rales or rhonchi. HEART: Regular rate and rhythm without murmurs, rubs, gallops. Musculoskeletal: Rt hand/wrist: No erythema, warmth, ecchymosis, deformity, or swelling noted. N/V intact distal. FROM to passive/active at the wrist. Strength 5+/5 to designer architect. No scaphoid tenderness. No other bony tenderness. Extremities: No cyanosis, clubbing, or edema b/l. Peripheral pulses 2+. Capillary refill less than 3 seconds. NEUROLOGICAL: Normal speech, normal gait. Normal sensory, motor exams otherwise unremarkable PSYCH: Normal mood, normal affect. SKIN: Rt posterior hand: [address] without erythema, purulence, induration, fluctuance, or streaks. 6 of the sutures are ready to be removed and were removed without any complications. [address] for removal at a later date. - INFECTION CONTROL TRAVEL OUTSIDE OF THE [place] IN LAST 30 DAYS: No COUNTRY TRAVELED TO/FROM: [facility] Course - Re-evaluation Re-evalutation: 06/13/19 14:39 Patient is an afebrile, well-hydrated, 49-year-old male who presents for suture removal. There is no evidence of infection or significant wound dehiscence at this time. Vitals are acceptable. 6 sutures were removed at this time by myself and [address] to allow for longer more adequate healing in the distal part of the wound. Patient to have removed in another 3 to 4 days. Wound instructions reviewed otherwise. Return to the ED with any other worsening/concerning symptoms. Patient is in agreement. - Vital Signs Vital signs: Temp Pulse Resp BP Pulse Ox 98.5 F 96 18 122/88 H 100 06/13/19 14:15 06/13/19 14:15 06/13/19 14:15 06/13/19 14:15 06/13/19 14:15 Discharge - Discharge Clinical Impression: Visit for suture removal Condition: Stable Disposition: HOME, SELF-CARE Instructions: Suture Removal Additional Instructions: Keep the skin clean Wash with soap and water Tylenol/ibuprofen if needed Triple antibiotic ointment daily Take medication as directed Monitor for any worsening symptoms Recheck with your PCM in 3-5 days Have the remaining 4 sutures taken out in another 3-4 days. Return to the ED with any worsening symptoms and/or development of fever, headache, chest pain, palpitations, syncope, shortness of breath, trouble breathing, abdominal pain, n/v/d, abscess, purulent discharge, red streaks, worsening swelling, or other worsening symptoms that are concerning to you. Forms: Elevated Blood Pressure
== END 2019-06-13 14:39 | disposition home or self-care (01) ==
LOC: ER 14:10
DX: S61.411D Laceration without foreign body of right hand, subsequent encounter (principal); X58.XXXD Exposure to other specified factors, subsequent encounter; F17.200 Nicotine dependence, unspecified, uncomplicated

== ENCOUNTER 2020-04-23 15:40 | Inpatient (IN) | payer SELFPAY ==
[2020-04-23 16:51] LABS: ABSOLUTE BASOPHILS # (AUTO) 0.1 10^3/uL (0.0-0.2); ABSOLUTE EOSINOPHILS # (AUTO) 0.1 10^3/uL (0.0-0.6); ABSOLUTE LYMPHOCYTES (AUTO) 1.8 10^3/uL (0.5-4.7); ABSOLUTE MONOCYTES (AUTO) 0.8 10^3/uL (0.1-1.4); APPEARANCE,URINE SLIGHTLY-CLOUDY; BASOPHILS % (AUTO) 1.4 % (0-2); BILIRUBIN,URINE NEGATIVE (NEGATIVE); COLOR,URINE YELLOW; EOSINOPHILS % (AUTO) 1.3 % (0-6); GLUCOSE, URINE NEGATIVE (NEGATIVE); HEMATOCRIT 45.3 % (37.9-51.0); HEMOGLOBIN 15.5 g/dL (13.5-17.0); KETONES,URINE NEGATIVE (NEGATIVE); LEUKOCYTE ESTERASE,URINE NEGATIVE (NEGATIVE); LYMPHOCYTES % (AUTO) 30.9 % (13-45); MEAN CORPUSCULAR HEMOGLOBIN 34.7 pg (27.0-33.4); MEAN CORPUSCULAR HGB CONC 34.3 g/dL (32.0-36.0); MEAN CORPUSCULAR VOLUME 101 fl (80-97); MONOCYTES % (AUTO) 14.4 % (3-13); NITRITE,URINE NEGATIVE (NEGATIVE); PLATELET COUNT 118 10^3/uL (150-450); PROTEIN,URINE 100 mg/dL (NEGATIVE); RED BLOOD COUNT 4.47 10^6/uL (4.35-5.55); RED CELL DISTRIBUTION WIDTH 13.4 % (11.5-14.0); TOTAL CELLS COUNTED % (AUTO) 100 %; URINE SPECIFIC GRAVITY 1.019; UROBILINOGEN,URINE NEGATIVE mg/dL (<2.0); WHITE BLOOD COUNT 5.8 10^3/uL (4.0-10.5)
[2020-04-23 16:52] LABS: ALBUMIN 4.8 g/dL (3.5-5.0); ALKALINE PHOSPHATASE 95 U/L (38-126); ANION GAP 9 (5-19); ASPARTATE AMINO TRANSFERASE 47 U/L (17-59); BILIRUBIN,DIRECT 0.1 mg/dL (0.0-0.4); BILIRUBIN,TOTAL 0.6 mg/dL (0.2-1.3); BLOOD UREA NITROGEN 9 mg/dL (7-20); CALCIUM 10.1 mg/dL (8.4-10.2); CARBON DIOXIDE 24 mmol/L (22-30); CHLORIDE 104 mmol/L (98-107); GLUCOSE 117 mg/dL (75-110); POTASSIUM 4.8 mmol/L (3.6-5.0); TOTAL PROTEIN 8.1 g/dL (6.3-8.2)
[2020-04-23 16:58] LABS: ALCOHOL < 10 mg/dL (NONE DETECTED)
[2020-04-23 17:08] LABS: URINE AMPHETAMINES SCREEN NEGATIVE; URINE BARBITURATES SCREEN NEGATIVE; URINE BENZODIAZEPINES SCREEN NEGATIVE; URINE COCAINE SCREEN NEGATIVE; URINE MARIJUANA (THC) SCREEN NEGATIVE; URINE METHADONE SCREEN NEGATIVE; URINE PHENCYCLIDINE SCREEN NEGATIVE
[2020-04-23] MEDS ORDERED: LORAZEPAM INJ 2 MG/1 ML VIAL IV ONE (19:29)
[2020-04-23] MEDS ORDERED: LEVETIRACETAM 1000 MG/NACL-ISO 1,000 MG/100 ML RTUPB IV ONE (19:36)
--- NOTE | 2020-04-23 19:38 | ER Document Report ---
ED General - General Chief Complaint: Seizure Stated Complaint: SEIZURE Time Seen by Provider: 04/23/20 19:04 Primary Care Provider: ANSELMO GUAMAN MD [Primary Care Provider] - Follow up as needed Notes: 49-year-old male presents emergency department via EMS after having a seizure at work. Patient was noted to have generalized shaking movements, foaming at the mouth and then awakened combative and confused. On arrival to the emergency department he was neurologically intact. Patient tells me that he has actually had 5 seizures over the past 3 years. States that he has never been told he needs follow-up for them. Has only been seen in the emergency department and never saw a neurologist as an outpatient. Does not take any medications for these. Patient denies any history of alcohol withdrawal seizures however review of the records in the computer show at least one admission for alcohol withdrawal seizures and another emergency department visit for alcohol withdrawal seizures. Admits to drinking 6-8 beers per night. Patient currently denies any complaints, does not take any tramadol, does not h ave any pain and has not had any recent injuries. TRAVEL OUTSIDE OF THE [place] IN LAST 30 DAYS: No - Related Data Allergies/Adverse Reactions: sulfamethoxazole [From Bactrim] Allergy (Verified 06/13/19 14:11) trimethoprim [From Bactrim] Allergy (Verified 06/13/19 14:11) codeine Adverse Reaction (Verified 06/13/19 14:11) VOMITING, welts Past Medical History - General Information source: Patient - Social History Smoking Status: Current Every Day Smoker Frequency of alcohol use: Heavy Drug Abuse: None Family History: Reviewed & Not Pertinent Patient has homicidal ideation: No - Past Medical History Cardiac Medical History: Reports: Hx Hypercholesterolemia, Hx Hypertension Renal/ Medical History: Denies: Hx Peritoneal Dialysis Psychiatric Medical History: Reports: Hx Depression Past Surgical History: Reports: Hx Orthopedic Surgery - L knee fracture, Hx Tonsillectomy Review of Systems - Review of Systems Constitutional: No symptoms reported EENT: No symptoms reported Neurological/Psychological: Seizure -: Yes All other systems reviewed and negative Physical Exam - Vital signs Vitals: Resp Pulse Ox 17 94 04/23/20 15:50 04/23/20 15:50 Interpretation: Tachycardic - Notes Notes: GENERAL: Alert, interacts well. No acute distress. HEAD: Normocephalic, atraumatic EYES: Pupils equal, round and reactive to light, extraocular movements intact. ENT: Oral mucosa moist, tongue midline. NECK: Full range of motion, supple, trachea midline. LUNGS: Clear to auscultation bilaterally, no wheezes, rales or rhonchi, no respiratory distress. HEART: Regular rate and rhythm, no murmurs, gallops, rubs. ABDOMEN: Soft, nontender, nondistended, bowel sounds present in all 4 quadrants. EXTREMITIES: Moves all 4 extremities spontaneously, no edema, radial and dorsalis pedis pulses 2/4 bilaterally. No cyanosis. NEUROLOGICAL: Alert and oriented x3, normal speech, cranial nerves II through XII grossly intact, biceps and patellar DTRs 2+ bilaterally. 5 of 5 muscle strength in all 4 extremities, tremor when taking off his glasses or moving his cup, no tremor at rest, patient states this is the same as it has been since he was a child. PSYCH: Normal mood, normal affect. SKIN: Warm, Dry, normal turgor, no rashes or lesions noted. Course - Re-evaluation Re-evalutation: 04/23/20 19:47 CBC shows slight thrombocytopenia with platelets of 118, sodium slightly low at 136.5 on the chemistries, otherwise unremarkable, urinalysis shows small blood but only 3 RBCs, UDS negative, serum alcohol level undetectable. Patient had actually been observed in the emergency department for 5 hours without any further seizure activity and being completely neurologically intact, I did discuss a possible outpatient follow-up plan with the patient and within 2 minutes of leaving the room patient had a second generalized tonic-clonic seizure. Patient is currently postictal, falls back asleep and when he wakes up he is combative and tries to hit people. Patient was given 2 mg of Ativan. I am concerned that the seizures are related to alcohol withdrawal. I did initially call Dr. Guaman as the patient stated that that was his primary care physician however Dr. Guaman says he has not seen him in years. Given the fact that the patient has had 2 seizures in 6 hours and they are likely related to alcohol withdrawal I will try and discuss the patient with the ICU care team. 04/23/20 20:02 Discussed with Nawaf Hope, recommended discussing with hospitalist first, discussed with Dr. Raza who stated that he will accept the patient to his se rvice on the IMCU. - Vital Signs Vital signs: Temp Pulse Resp BP Pulse Ox 98.8 F 21 H 143/93 H 97 04/23/20 16:13 04/23/20 18:01 04/23/20 17:30 04/23/20 18:01 - Laboratory Result Diagrams: 04/23/20 15:47 04/23/20 15:47 Laboratory results interpreted by me: 04/23/20 04/23/20 04/23/20 15:47 15:47 15:47 MCV 101 H MCH 34.7 H Plt Count 118 L White % (Auto) 14.4 H Sodium 136.5 L Glucose 117 H Urine Protein 100 H Urine Blood SMALL H Critical Care Note - Critical Care Note Total time excluding time spent on procedures (mins): 38 Discharge - Discharge Clinical Impression: Seizure, DTs (delirium tremens) Alcohol withdrawal seizure Qualifiers: Complication of substance-induced condition: uncomplicated Qualified Code(s): F10.230 - Alcohol dependence with withdrawal, uncomplicated Condition: Fair Disposition: ADMITTED INPATIENT Admitting Provider: Luz Marina (Hospitalist) Unit Admitted: IMCU Referrals: ANSELMO GUAMAN MD [Primary Care Provider] - Follow up as needed
[2020-04-23] MEDS ORDERED: RINGERS SOLUTION,LACTATED 1,000 ML IV ONE (19:59)
[2020-04-23] MEDS ORDERED: GUAIFENESIN SYRP 200 MG/10 ML UDC PO PRN (20:34)
[2020-04-23] MEDS ORDERED: MAGNESIUM HYDROXIDE SUSP 30 ML UDCUP PO PRN (20:34)
[2020-04-23] MEDS ORDERED: HYDRALAZINE HCL INJ/PF 20 MG/1 ML SDV IV PRN (20:34)
[2020-04-23] MEDS ORDERED: MAG HYDROX/AL HYDROX/SIMETH SUSP 30 ML UDCUP PO PRN (20:34)
[2020-04-23] MEDS ORDERED: CHLORPROMAZINE HCL INJ 25 MG/1 ML AMPULE IV PRN (20:34)
[2020-04-23] MEDS ORDERED: DIAZEPAM INJ 10 MG/2 ML DISP.SYRIN IV PRN (20:34)
[2020-04-23] MEDS ORDERED: NICOTINE 21 MG/24 HR PATCH.TD24 TD PRN (20:34)
[2020-04-23] MEDS ORDERED: LEVALBUTEROL HCL NEB 0.63 MG/3 ML AMPUL NEB PRN (20:34)
[2020-04-23] MEDS ORDERED: MELATONIN 5 MG TABLET PO PRN (20:34)
--- NOTE | 2020-04-23 21:11 | RADIOLOGY REPORT (SQ) ---
INDICATION: recurrent seizures. COMPARISON: None CORRELATION: None TECHNIQUE: Noncontrast spiral axial CT images were obtained from the skull base to vertex. This exam was performed according to our departmental dose-optimization program, which includes automated exposure control, adjustment of the mA and/or kV according to patient size and/or use of iterative reconstruction techniques. FINDINGS: There is no evidence of acute intracranial hemorrhage, midline shift, mass effect or mass lesion. Clayton-white differentiation is normal. There is no evidence of acute large territory infarct. Ventricles and extracerebral spaces are within normal limits, for age. The visualized paranasal sinuses are grossly clear. The orbits and eyeballs are unremarkable. The mastoid air cells are clear. Skull base and calvarium appear intact. IMPRESSION: Imaging is degraded by patient motion, with resultant artifact. The best possible images were obtained. No acute intracranial process is identified. The cause of the patient's recurrent seizure activity is not identified on this examination.
[2020-04-23] MEDS: HEPARIN SOD (PORCINE) 5,000 UNIT/ML 1 ML VIAL SUBCUT SCH (21:49)
[2020-04-23] MEDS: ACETAMINOPHEN 325 MG TABLET PO PRN (21:57)
[2020-04-23] MEDS: DIAZEPAM 5 MG TABLET PO SCH (21:57)
[2020-04-23] MEDS: FAMOTIDINE 20 MG TABLET PO SCH (21:58)
[2020-04-23] MEDS: ATENOLOL 50 MG TABLET PO SCH (21:58)
--- NOTE | 2020-04-23 22:36 | PDOC H&P ---
History of Present Illness Admission Date/PCP: 04/23/2020 20:11 No local PCP Patient complains of: Seizure History of Present Illness: LUPE JACKSON is a 49 year old male who presents the emergency room via EMS with an acute seizure. He admits being at work and then has no memory until arousing in the emergency room. He reportedly had a tonic-clonic generalized seizure at work and was combative with the ambulance crew and his post ictal state prior to arriving at the emergency room. In the emergency room he gr adually recovered back to the state of full alertness and then suffered another witnessed tonic-clonic generalized seizure. He admits having prior similar episodes at least 5 times over the last 2 to 3 years. He has never had a neurologic evaluation and does not take any medication for seizures. He admitted to drinking 6-8 beers per day and occasionally drinks a half a quart of hard liquor in a day. He has not identified any associated or accompanying signs and symptoms for his seizures, nor has he identified any aggravating or ameliorating factors for his seizures. In the emergency room he was again found to have a witnessed tonic-clonic generalized seizure which was controlled with intravenous Ativan. At the time of my evaluation the patient was noted to be very somnolent though arousable he was lethargic and confused this being unable to provide meaningful historical information. He was subsequently admitted hospital for further evaluation and treatment. Past Medical History Past Medical History: At the time of my evaluation the patient was noted to be very somnolent though arousable he was lethargic and confused this being unable to provide meaningful historical information. Information presented here is from the most reliable available source. Cardiac Medical History: Reports: Hyperlipidema, Hypertension Denies: Coronary Artery Disease, Myocardial Infarction Pulmonary Medical History: Denies: Asthma, Chronic Obstructive Pulmonary Disease (COPD) EENT Medical History: Denies: Cataracts, Ears - Hearing aids Neurological Medical History: Reports: Seizures, Other - Chronic tremor Denies: Hemorrhagic CVA, Ischemic CVA, Multiple Sclerosis Endocrine Medical History: Denies: Diabetes Mellitus Type 1, Diabetes Mellitus Type 2, Hyperthyroidism, Hypothyroidism, Obesity Renal/ Medical History: Denies: Chronic Kidney Disease, Nephrolithiasis Malignancy Medical History: Reports: None GI Medical History: Denies: Cirrhosis, Crohn's Disease, Gastroesophageal Reflux Disease, Hepatitis, Peptic Ulcer Disease, Ulcerative Colitis Musculoskeltal Medical History: Denies: Arthritis, Gout Skin Medical History: Denies: Eczema, Psoriasis Psychiatric Medical History: Reports: Alcohol Dependency, Depression, Tobacco Dependency Denies: Substance Abuse Traumatic Medical History: Reports: None Hematology: Denies: Anemia, Bleeding Tendencies Infectious Medical History: Reports: None Past Surgical History Past Surgical History: At the time of my evaluation the patient was noted to be very somnolent though arousable he was lethargic and confused this being unable to provide meaningful historical information. Information presented here is from the most reliable available source. Past Surgical History: Reports: Orthopedic Surgery - L knee fracture, Tonsillectomy Social History Information Source: Patient Lives with: Spouse/Significant other Smoking Status: Current Every Day Smoker Electronic Cigarette use?: No Frequency of Alcohol Use: Heavy - 6-8 beers per day and an occasional half quart of hard liquor daily Hx Recreational Drug Use: No Drugs: None Hx Prescription Drug Abuse: No Past Social History Note: At the time of my evaluation the patient was noted to be very somnolent though arousable he was lethargic and confused this being unable to provide meaningful historical information. Information presented here is from the most reliable available source, the emergency room physician who treated the patient. - Advance Directive Resuscitation Status: Full Code Surrogate healthcare decision maker:: Taylor Jackson Family History Family History: Arthritis, CAD, COPD, Other - Alcoholism Family History: At the time of my evaluation the patient was noted to be very somnolent though arousable he was lethargic and confused this being unable to provide meaningful historical information. Information presented here is from the most reliable available source. Parental Family History Reviewed: Yes Children Family History Reviewed: No Sibling(s) Family History Reviewed.: Yes Medication/Allergy Home Medications: Alprazolam [Xanax 0.5 mg Tablet] 0.5 mg PO Q6HP PRN 05/03/17 Fluoxetine HCl 20 mg PO DAILY 05/03/17 Folic Acid 1 tab PO DAILY 05/03/17 Thiamine HCl [Vitamin B-1] 100 mg PO DAILY 05/03/17 Metoprolol Tartrate [Lopressor 25 mg Tablet] 100 mg PO Q12 #60 tablet 05/10/17 Nicotine [Nicoderm 21 mg/24 Hr Transderm Patch] 1 each TD DAILY patch.td24 05/10/17 Ibuprofen [Motrin 800 mg Tablet] 800 mg PO Q8HP PRN #30 tab 06/07/18 Diazepam [Valium 5 mg Tablet] 10 mg PO TID #15 tablet 07/24/18 Allergies/Adverse Reactions: sulfamethoxazole [From Bactrim] Allergy (Verified 06/13/19 14:11) trimethoprim [From Bactrim] Allergy (Verified 06/13/19 14:11) codeine Adverse Reaction (Verified 06/13/19 14:11) VOMITING, welts Review of Systems ROS unobtainable: Other - At the time of my evaluation the patient was noted to be very somnolent though arousable he was lethargic and confused this being unable to provide meaningful historical information. Information presented here is from the most reliable available source, the emergency room physician who treated the patient. Constitutional: ABSENT: chills, fever(s) Eyes: ABSENT: visual disturbances, other - Eye pain Ears: ABSENT: hearing changes, other - Ear pain Nose, Mouth, and Throat: ABSENT: headache(s), sore throat Cardiovascular: ABSENT: chest pain, palpitations Respiratory: ABSENT: cough, dyspnea Gastrointestinal: ABSENT: abdominal pain, constipation, diarrhea, nausea, vom iting Genitourinary: ABSENT: difficulty urinating, dysuria, hematuria Musculoskeletal: ABSENT: back pain, joint swelling Integumentary: ABSENT: pruritus, rash Neurological: PRESENT: as per HPI, convulsions, tremor(s) - Chronic. ABSENT: confusion, focal weakness, syncope Psychiatric: ABSENT: anxiety, depression Endocrine: ABSENT: cold intolerance, heat intolerance, polydipsia, polyphagia, polyuria Hematologic/Lymphatic: ABSENT: easy bleeding, easy bruising Allergic/Immunologic: ABSENT: seasonal rhinorrhea Physical Exam Vital Signs: Temp Pulse Resp BP Pulse Ox 98.8 F 21 H 143/93 H 97 04/23/20 16:13 04/23/20 18:01 04/23/20 17:30 04/23/20 18:01 Intake & Output 04/21/20 04/22/20 04/23/20 23:59 23:59 23:59 Intake Total 100 Balance 100 Weight 74.843 kg General appearance: PRESENT: no acute distress, other - Sleeping but arousable though lethargic and confused. Head exam: PRESENT: atraumatic, normocephalic Eye exam: PRESENT: conjunctiva pink. ABSENT: conjunctival injection, scleral icterus Ear exam: PRESENT: normal external ear exam. ABSENT: bleeding, drainage Mouth exam: PRESENT: dry mucosa, neck supple Neck exam: ABSENT: thyromegaly, tracheal deviation Respiratory exam: PRESENT: clear to auscultation kraig, symmetrical, unlabored Cardiovascular exam: PRESENT: RRR, tachycardia. ABSENT: clicks, gallop, rubs Pulses: PRESENT: normal radial pulses, normal dorsalis pedis pul Vascular exam: PRESENT: normal capillary refill. ABSENT: pallor GI/Abdominal exam: PRESENT: normal bowel sounds, soft Rectal exam: PRESENT: deferred Extremities exam: ABSENT: joint swelling, pedal edema Musculoskeletal exam: ABSENT: deformity, dislocation Neurological exam: PRESENT: altered - Mildly obtunded but arousable, other - Lethargic and confused Psychiatric exam: PRESENT: other - Lethargic and confused Skin exam: PRESENT: dry, intact, warm. ABSENT: jaundice, rash, urticaria Results Laboratory Results: 04/23/20 15:47 04/23/20 15:47 04/23/20 04/23/20 04/23/20 15:47 15:47 15:47 WBC 5.8 RBC 4.47 Hgb 15.5 Hct 45.3 MCV 101 H MCH 34.7 H MCHC 34.3 RDW 13.4 Plt Count 118 L Seg Neutrophils % 52.0 Sodium 136.5 L Potassium 4.8 Chloride 104 Carbon Dioxide 24 Anion Gap 9 BUN 9 Creatinine 0.86 Est GFR ( Amer) > 60 Glucose 117 H Calcium 10.1 Magnesium 2.1 Total Bilirubin 0.6 AST 47 Alkaline Phosphatase 95 Total Protein 8.1 Albumin 4.8 Urine Color YELLOW Urine Appearance SLIGHTLY-CLOUDY Urine pH 6.0 Ur Specific [place] 1.019 Urine Protein 100 H Urine Glucose (UA) NEGATIVE Urine Ketones NEGATIVE Urine Blood SMALL H Urine Nitrite NEGATIVE Ur Leukocyte Esterase NEGATIVE Urine WBC (Auto) 1 Urine RBC (Auto) 3 Assessment and Plan - Diagnosis (1) Seizure Is this a current diagnosis for this admission?: Yes (2) Tachycardia Is this a current diagnosis for this admission?: Yes (3) Tremor Is this a current diagnosis for this admission?: Yes (4) Alcohol abuse, continuous Is this a current diagnosis for this admission?: Yes (5) Essential hypertension Is this a current diagnosis for this admission?: Yes (6) Tobacco abuse Is this a current diagnosis for this admission?: Yes - Plan Summary Summary: Patient will be admitted to [facility] where he will receive routine supportive and symptomatic cares. He will be treated with Valium 10 mg p.o. every 4 hours and supplemental Valium 10 mg IV every hour as needed for seizures or severe alcohol withdrawal symptoms. He will be treated with thiamine and folate orally. He will be started on atenolol 50 mg every 12 hours. Patient be treated with Th orazine 25 mg IV every 8 hours as needed for agitation and/or hallucinations. A nicotine replacement patch will be available for the patient's use, if desired. Patient will be treated with a cardiac diet. Seizure precautions will be taken. CBCs, metabolic profiles, magnesium levels and further laboratory and/or radiographic evaluations will be obtained as appropriate. A teleneurology consultation may be considered by the patient's daytime hospitalist. - Time Time Spent with patient: 15-24 minutes Medications reviewed and adjusted accordingly: Yes Anticipated discharge: Home - Inpatient Certification Based on my medical assessment, after consideration of the patient's com orbidities, presenting symptoms, or acuity I expect that the services needed warrant INPATIENT care.: Yes I certify that my determination is in accordance with my understanding of Medicare's requirements for reasonable and necessary INPATIENT services [42 CFR 412.3e].: Yes Medical Necessity: Need Close Monitoring Due to Risk of Patient Decompensation, Need For Continuous Telemetry Monitoring, Need for Neurological Checks, Risk of Complication if Not Cared For in Hospital
[2020-04-24] MEDS: DIAZEPAM 5 MG TABLET PO SCH ×4 (03:14→21:33)
[2020-04-24 05:38] LABS: HEMATOCRIT 42.5 % (37.9-51.0); HEMOGLOBIN 14.8 g/dL (13.5-17.0); MEAN CORPUSCULAR HGB CONC 34.7 g/dL (32.0-36.0); MEAN CORPUSCULAR VOLUME 101 fl (80-97); RED BLOOD COUNT 4.22 10^6/uL (4.35-5.55); RED CELL DISTRIBUTION WIDTH 13.6 % (11.5-14.0); WHITE BLOOD COUNT 9.5 10^3/uL (4.0-10.5)
[2020-04-24] MEDS: HEPARIN SOD (PORCINE) 5,000 UNIT/ML 1 ML VIAL SUBCUT SCH ×3 (05:44→21:26)
[2020-04-24 05:53] LABS: ANION GAP 5 (5-19); BLOOD UREA NITROGEN 11 mg/dL (7-20); CALCIUM 9.5 mg/dL (8.4-10.2); CARBON DIOXIDE 26 mmol/L (22-30); CHLORIDE 105 mmol/L (98-107); CHOLESTEROL 226.91 mg/dL (0-200); GLUCOSE 98 mg/dL (75-110); TRIGLYCERIDES 69 mg/dL (<150)
[2020-04-24 05:57] LABS: PLATELET COUNT 95 10^3/uL (150-450)
[2020-04-24 06:04] LABS: DIRECT LDL 144 mg/dL (<100)
[2020-04-24 06:05] LABS: POTASSIUM 3.8 mmol/L (3.6-5.0)
[2020-04-24 06:09] LABS: FREE T3 3.85 pg/mL (2.77-5.27)
[2020-04-24 06:23] LABS: THYROID STIMULATING HORMONE 1.16 uIU/mL (0.47-4.68)
--- NOTE | 2020-04-24 07:50 | EKG REPORT ---
SEVERITY:- OTHERWISE NORMAL ECG - SINUS TACHYCARDIA LOW VOLTAGE IN FRONTAL LEADS : Confirmed by: Edmund Ta MD 24-Apr-2020 07:49:35
[2020-04-24] MEDS: ACETAMINOPHEN 325 MG TABLET PO PRN ×2 (08:35→17:36)
[2020-04-24] MEDS ORDERED: LORAZEPAM INJ 2 MG/1 ML VIAL IV PRN ×4 (09:14→09:15)
[2020-04-24] MEDS: DOCUSATE SODIUM 100 MG CAPSULE PO SCH ×2 (09:49→17:36)
[2020-04-24] MEDS: FOLIC ACID 1 MG TABLET PO SCH (09:49)
[2020-04-24] MEDS: THIAMINE HCL 100 MG TABLET PO SCH (09:49)
[2020-04-24] MEDS: FAMOTIDINE 20 MG TABLET PO SCH ×2 (09:49→21:34)
[2020-04-24] MEDS: ATENOLOL 50 MG TABLET PO SCH ×2 (09:50→21:33)
--- NOTE | 2020-04-24 13:58 | PDOC PROGRESS REPORT ---
Subjective Progress Note for:: 04/24/20 Subjective:: Patient was seen on morning rounds. Found resting in bed, comfortably, on room air. He is noted to be diaphoretic with hand tremor. He is otherwise alert and oriented. He can recall most of the events of yesterday up until the point of his first seizure. He tells me that he is feeling well and denies all symptoms; specifically, fever, headache, chest pain, palpitations, dyspnea, cough, abdominal pain, nausea vomiting diarrhea, withdrawal symptoms. He denies his hand tremor even as it is pointed out to him. He has to be discharged home and otherwise has no other questions or concerns at this time. No concerns per nursing. Reason For Visit: ACUTE SEIZURES, ALCOHOL ABUSE, TOBACCO ABUSE Physical Exam Vital Signs: Temp Pulse Resp BP Pulse Ox 98.0 F 76 16 144/90 H 95 04/24/20 11:35 04/24/20 11:35 04/24/20 11:35 04/24/20 11:35 04/24/20 11:35 Intake & Output 04/23/20 04/24/20 04/25/20 06:59 06:59 06:59 Intake Total 1100 500 Balance 1100 500 Weight 57.4 kg General appearance: PRESENT: no acute distress, well-developed, well-nourished Head exam: PRESENT: atraumatic, normocephalic Eye exam: PRESENT: conjunctiva pink, EOMI, PERRLA. ABSENT: scleral icterus Mouth exam: PRESENT: moist, tongue midline Respiratory exam: PRESENT: clear to auscultation kraig, symmetrical, unlabored. ABSENT: rales, rhonchi, wheezes Cardiovascular exam: PRESENT: RRR, +S1, +S2. ABSENT: diastolic murmur, rubs, systolic murmur Pulses: PRESENT: normal dorsalis pedis pul Vascular exam: PRESENT: normal capillary refill Extremities exam: PRESENT: full ROM. ABSENT: calf tenderness, clubbing, pedal edema Neurological exam: PRESENT: alert, awake, oriented to person, oriented to place, oriented to time, oriented to situation, CN II-XII grossly intact, other - Diaphoretic, resting hand tremor. ABSENT: motor sensory deficit Psychiatric exam: PRESENT: appropriate affect, normal mood. ABSENT: homicidal ideation, suicidal ideation Skin exam: PRESENT: dry, intact, warm. ABSENT: cyanosis, rash Results Laboratory Results: 04/24/20 05:02 04/24/20 05:02 04/23/20 04/23/20 04/23/20 15:47 15:47 15:47 WBC 5.8 RBC 4.47 Hgb 15.5 Hct 45.3 MCV 101 H MCH 34.7 H MCHC 34.3 RDW 13.4 Plt Count 118 L Seg Neutrophils % 52.0 Sodium 136.5 L Potassium 4.8 Chloride 104 Carbon Dioxide 24 Anion Gap 9 BUN 9 Creatinine 0.86 Est GFR ( Amer) > 60 Glucose 117 H Calcium 10.1 Magnesium 2.1 Total Bilirubin 0.6 AST 47 Alkaline Phosphatase 95 Total Protein 8.1 Albumin 4.8 Triglycerides Cholesterol LDL Cholesterol Direct VLDL Cholesterol HDL Cholesterol TSH Free T3 pg/mL Urine Color YELLOW Urine Appearance SLIGHTLY-CLOUDY Urine pH 6.0 Ur Specific [place] 1.019 Urine Protein 100 H Urine Glucose (UA) NEGATIVE Urine Ketones NEGATIVE Urine Blood SMALL H Urine Nitrite NEGATIVE Ur Leukocyte Esterase NEGATIVE Urine WBC (Auto) 1 Urine RBC (Auto) 3 04/24/20 04/24/20 04/24/20 05:02 05:02 05:02 WBC 9.5 RBC 4.22 L Hgb 14.8 Hct 42.5 MCV 101 H MCH 35.0 H MCHC 34.7 RDW 13.6 Plt Count 95 L Seg Neutrophils % Sodium 135.7 L Potassium 3.8 D Chloride 105 Carbon Dioxide 26 Anion Gap 5 BUN 11 Creatinine 0.88 Est GFR ( Amer) > 60 Glucose 98 Calcium 9.5 Magnesium 2.1 Total Bilirubin AST Alkaline Phosphatase Total Protein Albumin Triglycerides 69 Cholesterol 226.91 H LDL Cholesterol Direct 144 H VLDL Cholesterol 14.0 HDL Cholesterol 74 TSH 1.16 Free T3 pg/mL 3.85 Urine Color Urine Appearance Urine pH Ur Specific [place] Urine Protein Urine Glucose (UA) Urine Ketones Urine Blood Urine Nitrite Ur Leukocyte Esterase Urine WBC (Auto) Urine RBC (Auto) Impressions: Head CT 04/23/20 19:36 IMPRESSION: Imaging is degraded by patient motion, with resultant artifact. The best possible images were obtained. No acute intracranial process is identified. The cause of the patient's recurrent seizure activity is not identified on this examination. Assessment and Plan - Diagnosis (1) Alcohol withdrawal seizure Qualifiers: Complication of substance-induced condition: uncomplicated Qualified Code (s): F10.230 - Alcohol dependence with withdrawal, uncomplicated Is this a current diagnosis for this admission?: Yes Plan: Patient is admitted to [facility] on continuous cardiac telemetry. CIWA with sliding scale Ativan based on scores. Seizure precautions. Folic acid and thiamine supplementation. Alcohol cessation encouraged. Discharge planning consulted. (2) Alcohol abuse, continuous Is this a current diagnosis for this admission?: Yes Plan: Patient was not receptive to recommendations for alcohol cessation at this time. He tells me that his seizures are now related to his alcohol intake. He does admit to drinking 6-7 beers nightly. He states that this is been ongoing for years and so could not possibly be the cause of his seizure yesterday. He also tells me, "I only drink beer, it is not like a drink hard liquor." He remains on receptive to attempting to educate that beer can be just is detrimental. Remaining management as above. (3) Tachycardia Is this a current diagnosis for this admission?: Yes Plan: Resolved. Likely secondary to alcohol withdrawal. Continue atenolol 50 mg twice daily. Monitor on telemetry. (4) Tremor Is this a current diagnosis for this admission?: Yes Plan: As in #1 (5) Essential hypertension Is this a current diagnosis for this admission?: Yes Plan: Atenolol 50 mg twice daily. IV hydralazine as needed for blood pressure control. Cardiac diet. (6) Tobacco abuse Is this a current diagnosis for this admission?: Yes Plan: Smoking cessation encouraged. Nicotine replacement therapies provided. - Time Time Spent with patient: 35 or more minutes Medications reviewed and adjusted accordingly: Yes
[2020-04-24] MEDS ORDERED: ATORVASTATIN CALCIUM 20 MG TABLET PO SCH (22:00)
[2020-04-25] MEDS: DIAZEPAM 5 MG TABLET PO SCH (05:02)
[2020-04-25] MEDS: HEPARIN SOD (PORCINE) 5,000 UNIT/ML 1 ML VIAL SUBCUT SCH ×2 (05:06→13:03)
[2020-04-25 06:28] LABS: ANION GAP 7 (5-19); BLOOD UREA NITROGEN 10 mg/dL (7-20); CALCIUM 9.5 mg/dL (8.4-10.2); CARBON DIOXIDE 26 mmol/L (22-30); CHLORIDE 101 mmol/L (98-107); GLUCOSE 93 mg/dL (75-110); POTASSIUM 4.1 mmol/L (3.6-5.0)
[2020-04-25] MEDS: THIAMINE HCL 100 MG TABLET PO SCH (09:40)
[2020-04-25] MEDS: FOLIC ACID 1 MG TABLET PO SCH (09:40)
[2020-04-25] MEDS: DOCUSATE SODIUM 100 MG CAPSULE PO SCH (09:40)
[2020-04-25] MEDS: FAMOTIDINE 20 MG TABLET PO SCH (09:40)
[2020-04-25] MEDS ORDERED: METOPROLOL TARTRATE 25 MG TABLET PO SCH (10:00)
[2020-04-25 16:02] VITALS: BP 137/93
--- NOTE | 2020-04-25 16:21 | Left Against Medical Advice ---
Against Medical Advice Admission Date/Time: 04/23/20 20:09 Primary Care Provider: ANSELMO GUAMAN MD Date of Patient Emigration: 04/25/20 - Diagnosis: (1) Alcohol withdrawal seizure Is this a current diagnosis for this admission?: Yes (2) Alcohol abuse, continuous Is this a current diagnosis for this admission?: Yes (3) Tachycardia Is this a current diagnosis for this admission?: Yes (4) Tremor Is this a current diagnosis for this admission?: Yes (5) Essential hypertension Is this a current diagnosis for this admission?: Yes (6) Tobacco abuse Is this a current diagnosis for this admission?: Yes - Summary: Summary: Please see Admission and Progress Notes as well. LUPE JACKSON is a 49 M, who LEFT AGAINST MEDICAL ADVICE. The Patient was admitted on 04/23/20 20:09. The patient was admitted to [facility] on continuous cardiac telemetry floor alcohol withdrawal related seizures. He was placed on scheduled Valium with sliding scale Ativan per CIWA scores. He was supported with IV fluids, MVI, thiamin, and folic acid supplementation. Discussed alcohol cessation and offered discharge planning consultation to review rehab options; patient declined. He did surprisingly well and required him very little PRN Ativan for his symptoms. On morning of Progress Day 2, patient was informed that we were discontinuing his scheduled Valium. He was advised that would like to observe him throughout the day to ensure that he did not require any PRN dosing and that his blood pressure and heart rate remained stable with plans to possibly discharge later in the evening or early the following morning. Received call from nursing that the patient left AGAINST MEDICAL ADVICE mid- afternoon.
== END 2020-04-25 13:55 | disposition home or self-care (01) | DRG 101 ==
LOC: ER 15:40 → EH 20:09 → 3N 21:49
PROVIDERS: ADMIT Emergency Medicine; ATTEND Registered Nurse
DX: G40.509 Epileptic seizures related to external causes, not intractable, without status epilepticus (principal); F10.239 Alcohol dependence with withdrawal, unspecified; F17.200 Nicotine dependence, unspecified, uncomplicated; Z88.2 Allergy status to sulfonamides; Z88.5 Allergy status to narcotic agent; I10 Essential (primary) hypertension; Z81.1 Family history of alcohol abuse and dependence; Z82.61 Family history of arthritis; Z82.49 Family history of ischemic heart disease and other diseases of the circulatory system
CPT/HCPCS: 36415; 70450; 80048; 80053; 80061; 80307; 81001; 83735; 84443; 84481; 85025; 85027; 93005; 93010; 96365; 96375; 99291; J1953; J2060; J3490; J7120

== ENCOUNTER 2020-06-28 23:23 | Emergency (ER) | payer SELFPAY ==
[2020-06-28 23:37] VITALS: BP 138/105
== END 2020-06-29 01:45 | disposition left against medical advice (07) ==
LOC: ER 23:23
DX: Z53.21 Procedure and treatment not carried out due to patient leaving prior to being seen by health care provider (principal); R51 Headache